=== PATIENT | male | born 1970 | race Two or more races ===

== ENCOUNTER 2022-09-01 02:34 | Emergency (ER) | payer MEDICAID ==
[~2022-09-01] VITALS: Ht 175.3 cm; Wt 105.0 kg
[2022-09-01 03:32] LABS: Albumin 3.8 g/dL (3.4-5.0); BUN/Creatinine Ratio 16.3; Calcium 9.4 mg/dL (8.5-10.1)
[2022-09-01 03:33] LABS: Basophils # (auto) 0 10 ^3/uL (0-0.2); Basophils % (auto) 0.6 % (0.0-2.0); Eosinophils # (auto) 0.3 10 ^3/uL (0-0.8); Eosinophils % (auto) 4.1 % (0.0-7.0); Hematocrit 41.4 % (41.0-53.0); Hemoglobin 14.4 g/dL (13.5-17.5); Lymphocytes # (auto) 2.3 10 ^3/uL (0.4-5.4); Mean Corpuscular Hemoglobin 29.4 pg (28.0-32.0); Mean Corpuscular Hgb Conc. 34.8 g/dL (32.0-36.0); Mean Corpuscular Volume 84.5 fL (80.0-100.0); Monocytes # (auto) 0.6 10 ^3/uL (0-1.3); Monocytes % (auto) 8.3 % (0.0-12.0); Nucleated Red Blood Cells % 0.3 %; Red Blood Cells 4.91 10^6/uL (4.5-5.90); Red Cell Distribution Width 14.8 % (11.8-14.3); White Blood Cell 7.3 10^3/uL (4.4-10.8)
[2022-09-01 03:35] LABS: Bilirubin, Total 0.3 mg/dL (0.2-1.0)
[2022-09-01] MEDS ORDERED: KETOROLAC TROMETH 60MG/2ML VIAL IM ONE (05:00)
[2022-09-01] MEDS ORDERED: METH500T22 PO (05:02)
[2022-09-01 05:29] VITALS: BP 139/88
== END 2022-09-01 05:47 | disposition home or self-care (01) ==
LOC: ER 02:34
DX: R10.11 Right upper quadrant pain (principal); R07.81 Pleurodynia; M79.18 Myalgia, other site; I10 Essential (primary) hypertension
CPT/HCPCS: 36415; 71045; 71250; 74176; 80053; 83690; 85025; 93005; 96372; 99285; J1885

== ENCOUNTER 2023-10-14 02:18 | Emergency (ER) | payer OTHER ==
[~2023-10-14] VITALS: Ht 175.3 cm; Wt 104.4 kg
[~2023-10-14 02:18] MED LIST: METH-1181 PO
[2023-10-14 02:30] VITALS: BP 132/80; PULSE 98; RESP 20; TEMP 98.2; O2SAT 99
[2023-10-14] MEDS: IBUPROFEN 800 MG TAB PO ONE (04:30)
[2023-10-14] MEDS ORDERED: CYCL-611 PO (04:37)
[2023-10-14] MEDS ORDERED: IBUP1TAB5 PO (04:37)
== END 2023-10-14 07:17 | disposition home or self-care (01) ==
LOC: ER 02:18
DX: S43.492A Other sprain of left shoulder joint, initial encounter (principal); S33.5XXA Sprain of ligaments of lumbar spine, initial encounter; S53.492A Other sprain of left elbow, initial encounter; I10 Essential (primary) hypertension; Z79.899 Other long term (current) drug therapy; V89.2XXA Person injured in unspecified motor-vehicle accident, traffic, initial encounter; Y93.I9 Activity, other involving external motion; Y92.89 Other specified places as the place of occurrence of the external cause; Y99.8 Other external cause status
CPT/HCPCS: 72100; 73030; 73080

== ENCOUNTER 2024-01-07 01:22 | Inpatient (IN) | payer OTHER ==
[~2024-01-07] VITALS: Ht 175.3 cm; Wt 103.7 kg
[~2024-01-07 01:22] MED LIST changes: +CYCL-611 PO; +IBUP1TAB5 PO
[2024-01-07 02:00] LABS: Basophils # (auto) 0.1 10 ^3/uL (0-0.2); Basophils % (auto) 0.4 % (0.0-2.0); Eosinophils # (auto) 0.1 10 ^3/uL (0-0.8); Eosinophils % (auto) 0.9 % (0.0-7.0); Hematocrit 40.8 % (41.0-53.0); Hemoglobin 14.2 g/dL (13.5-17.5); Lymphocytes # (auto) 1.3 10 ^3/uL (0.4-5.4); Lymphocytes % (auto) 10.6 % (10.0-50.0); Mean Corpuscular Hemoglobin 30.1 pg (28.0-32.0); Mean Corpuscular Hgb Conc. 34.9 g/dL (32.0-36.0); Mean Corpuscular Volume 86.4 fL (80.0-100.0); Monocytes # (auto) 0.8 10 ^3/uL (0-1.3); Monocytes % (auto) 6.6 % (0.0-12.0); Neutrophils # (auto) 10.1 10 ^3/uL (1.6-8.6); Neutrophils % (auto) 81.5 % (37.0-80.0); Red Blood Cells 4.73 10^6/uL (4.5-5.90); Red Cell Distribution Width 14.9 % (11.8-14.3); White Blood Cell 12.5 10^3/uL (4.4-10.8)
[2024-01-07 02:16] LABS: Alanine Aminotransferase 45 U/L (7-40); Albumin 4.5 g/dL (3.2-4.8); Alkaline Phosphatase 108 U/L (46-116); Anion Gap 9 (5-15); Aspartate Aminotransferase 23 U/L (13-40); BUN/Creatinine Ratio 9.5 (10.0-20.0); Bilirubin, Total 1.2 mg/dL (0.2-1.0); Blood Urea Nitrogen 8 mg/dL (9-23); Calcium 9.7 mg/dL (8.7-10.4); Carbon Dioxide 23 mmol/L (20-30); Chloride 102 mmol/L (98-107); Glucose 119 mg/dL (74-106); Potassium 4.1 mmol/L (3.5-5.1); Sodium 134 mmol/L (136-145); Total Protein 7.8 g/dL (5.7-8.2)
[2024-01-07 03:04] LABS: COVID19 ANTIGEN SOFIA FIA NEGATIVE (NEGATIVE); Rapid Influenza A Negative (Negative); Rapid Influenza B Negative (Negative)
[2024-01-07] MEDS ORDERED: ONDANSETRON HCL 4 MG/2 ML VIAL IV PRN (04:30)
[2024-01-07] MEDS ORDERED: DOCUSATE SOD 100 MG CAP PO PRN (04:30)
[2024-01-07] MEDS: dilTIAZem 25 MG/5 ML VIAL IV ONE (04:30)
[2024-01-07] MEDS ORDERED: MORPHINE SULFATE INJ 2 MG/ml SYRG IV PRN ×2 (04:30→06:30)
[2024-01-07] MEDS: SODIUM CHLORIDE 0.9% 1,000 ML IV SCH (05:12)
[2024-01-07] MEDS: cefTRIAXone 1GM/50ML D5W 50 ML IV ONE (05:12)
[2024-01-07 05:38] VITALS: PULSE 92; RESP 18; O2SAT 96
[2024-01-07 06:58] LABS: Urine Bacteria None Seen /hpf (None Seen)
[2024-01-07 07:04] LABS: Urine Blood 1+ /uL (Negative); Urine Clarity Clear (Clear); Urine Color Light-Yellow (Yellow); Urine Protein, UAD Negative (Negative); Urine Specific Gravity 1.007 (1.001-1.035); Urine Urobilinogen Normal (Negative); Urine WBC 2 /hpf (0 - 3)
[2024-01-07 07:30] VITALS: PULSE 91; RESP 12; O2SAT 96
[2024-01-07] MEDS: METOPROLOL TARTRATE 25 MG TAB PO SCH (10:00)
[2024-01-07] MEDS: AZITHROMYCIN 500MG/ 250ML 250 ML IV SCH (11:50)
[2024-01-07] MEDS: HYDROcodone-ACET 5/325MG TAB PO PRN (15:18)
[2024-01-07 18:29] VITALS: PULSE 82; RESP 16; O2SAT 96
[2024-01-07 18:35] VITALS: BP 121/64; PULSE 82; RESP 16; TEMP 98.2; O2SAT 98
[2024-01-07] MEDS ORDERED: LISI40TA16 PO (19:00)
[2024-01-07 20:00] VITALS: PULSE 84
[2024-01-07 21:00] VITALS: BP 112/62; PULSE 83; RESP 19; TEMP 98.3; O2SAT 97
[2024-01-08] VITALS (8 sets, daily range): BP systolic 107–149; BP diastolic 71–81; PULSE 71–96; RESP 14–18; TEMP 98.1–98.7; O2SAT 94–99
[2024-01-08] MEDS: IBUPROFEN 600 MG TAB PO PRN (03:54)
[2024-01-08] MEDS: NITROGLYCERIN 0.4 MG SL TAB SL PRN (04:24)
[2024-01-08] MEDS: cefTRIAXone 1GM/50ML D5W 50 ML IV SCH (05:23)
[2024-01-08 05:53] LABS: Basophils # (auto) 0 10 ^3/uL (0-0.2); Basophils % (auto) 0.3 % (0.0-2.0); Eosinophils # (auto) 0.2 10 ^3/uL (0-0.8); Eosinophils % (auto) 2.4 % (0.0-7.0); Hemoglobin 13.9 g/dL (13.5-17.5); Lymphocytes # (auto) 1.6 10 ^3/uL (0.4-5.4); Lymphocytes % (auto) 16.2 % (10.0-50.0); Mean Corpuscular Hemoglobin 30.1 pg (28.0-32.0); Mean Corpuscular Hgb Conc. 34.8 g/dL (32.0-36.0); Mean Corpuscular Volume 86.6 fL (80.0-100.0); Monocytes # (auto) 0.7 10 ^3/uL (0-1.3); Monocytes % (auto) 7.2 % (0.0-12.0); Neutrophils # (auto) 7.5 10 ^3/uL (1.6-8.6); Neutrophils % (auto) 73.9 % (37.0-80.0); Nucleated Red Blood Cells % 0.1 %; Red Blood Cells 4.62 10^6/uL (4.5-5.90); Red Cell Distribution Width 14.7 % (11.8-14.3); White Blood Cell 10.1 10^3/uL (4.4-10.8)
[2024-01-08 06:17] LABS: Alanine Aminotransferase 40 U/L (7-40); Alkaline Phosphatase 83 U/L (46-116); Anion Gap 7 (5-15); Aspartate Aminotransferase 22 U/L (13-40); BUN/Creatinine Ratio 11.8 (10.0-20.0); Blood Urea Nitrogen 9 mg/dL (9-23); Calcium 9.3 mg/dL (8.7-10.4); Carbon Dioxide 25 mmol/L (20-30); Chloride 104 mmol/L (98-107); Glucose 91 mg/dL (74-106); Potassium 4.1 mmol/L (3.5-5.1); Sodium 136 mmol/L (136-145); Total Protein 7.1 g/dL (5.7-8.2)
[2024-01-09 01:06] VITALS: BP 137/84; PULSE 79; RESP 18; TEMP 98.5; O2SAT 100
[2024-01-09 05:00] VITALS: BP 117/68; PULSE 89; RESP 18; TEMP 98.6; O2SAT 96
[2024-01-09 07:30] VITALS: PULSE 85; RESP 18
[2024-01-09 08:59] VITALS: BP 125/80; PULSE 92; RESP 18; TEMP 98.6; O2SAT 96
[2024-01-09 11:57] VITALS: BP 111/72; PULSE 81; RESP 18; TEMP 98.3; O2SAT 96
[2024-01-09] MEDS ORDERED: AZIT500T66 PO (12:29)
[2024-01-09 14:36] VITALS: BP 125/80; PULSE 92; RESP 18; TEMP 36.8; O2SAT 94
== END 2024-01-09 14:26 | disposition home or self-care (01) | DRG 137 ==
LOC: ER 01:22 → TELE 06:18 → TELE-WESTW 18:22
PROVIDERS: ADMIT Nurse Practitioner Family; ATTEND Family Medicine
DX: J15.69 Pneumonia due to other Gram-negative bacteria (principal); J90 Pleural effusion, not elsewhere classified; J15.9 Unspecified bacterial pneumonia; D72.829 Elevated white blood cell count, unspecified; Z20.822 Contact with and (suspected) exposure to COVID-19; I10 Essential (primary) hypertension; Z80.0 Family history of malignant neoplasm of digestive organs; Z82.49 Family history of ischemic heart disease and other diseases of the circulatory system; Z79.899 Other long term (current) drug therapy
CPT/HCPCS: 36415; 71045; 76604; 80053; 81001; 84484; 85025; 87426; 87804; 93005; G0378

== ENCOUNTER 2024-12-01 16:11 | Emergency (ER) | payer OTHER ==
[~2024-12-01] VITALS: Ht 175.3 cm; Wt 102.7 kg
[~2024-12-01 16:11] MED LIST changes: +AZIT500T66 PO; -IBUP1TAB5 PO; +LISI40TA16 PO; -METH-1181 PO
--- NOTE | 2024-12-01 16:20 | ED.PDOC ---
HPI Comments 54 year old male presents to the ED with a chief complaint of chest pain onset 2 weeks. Patient states he has been experiencing chest pain for the past 2 weeks, began experiencing shortness of breath today, noticed chest pain worsen. Patient has PMHx HTN, took BP medication this morning, states BP was not elevated. For the past few days he noticed BP was elevated. Denies nausea, vomiting, diarrhea, abdominal pain, dizziness, blurry vision, headache, fevers. No other symptoms or modifying factors present at this time. Chief Complaint: Chest Pain Time Seen by MD: 16:15 Primary Care Provider: JOSUE OCHOA Reviewed Notes: Medications, Allergies Allergies: Coded Allergies: NO KNOWN ALLERGIES (Unverified , 09/01/22) Home Meds Active Scripts Azithromycin (Azithromycin) 500 Mg Tab, 1 TAB PO DAILY, #10 TAB Prov:RENETTA KAPOOR MD 01/09/24 Cyclobenzaprine HCl (Cyclobenzaprine Hydrochlo) 10 Mg Tab, 1 TAB PO Q8HPRN PRN, #15 TAB As needed for muscle spasm Prov:DAMION DENNIS [employer] EVENTS FACILITIES RENTAL MANAGER 10/14/23 Reported Medications Lisinopril (Lisinopril) 40 Mg Tab, 40 MG PO DAILY for 30 Days, MG 01/07/24 Information Source: Patient Mode of Arrival: Ambulatory Severity: Moderate Timing: Weeks Duration: Since onset Prehospital treatment: None Location: Chest (L) Radiation: No Radiation Quality: Sharp Onset: At Rest Cardiac Risk Factors: HTN PE Risk Factors: None History of: None Modifying Factors: Nothing Associated Signs and Symptoms: SOB Past Medical History PAST MEDICAL HISTORY: HTN Surgical History: Denies all surgeries Family History Family History: Reviewed,noncontributory to illness Social History Smoker: Non-Smoker Alcohol: Denies ETOH Use Drugs: Denies Drug Use Lives In: Home Constitutional: denies: chills, diaphoresis, fatigue, fever, malaise, sweats, weakness, others EENTM: denies: blurred vision, double vision, ear bleeding, ear discharge, ear drainage, ear pain, ear ringing, eye pain, eye redness, hearing loss, mouth pain, mouth swelling, nasal discharge, nose bleeding, nose congestion, nose pain, photophobia, tearing, throat pain, throat swelling, voice changes, others Respiratory: reports: shortness of breath; denies: cough, hemoptysis, orthopnea, SOB at rest, SOB with excertion, stridor, wheezing, others Cardiovascular: reports: chest pain; denies: dizzy spells, diaphoresis, Dyspnea on exertion, edema, irregular heart beat, left arm pain, lightheadedness, palpitations, PND, syncope, others Gastrointestinal: denies: abdomen distended, abdominal pain, blood streaked bowels, constipated, diarrhea, dysphagia, difficulty swallowing, hematemesis, melena, nausea, poor appetite, poor fluid intake, rectal bleeding, rectal pain, vomiting, others Genitourinary: denies: burning, dysuria, flank pain, frequency, hematuria, incontinence, penile discharge, penile sore, pain, testicle pain, testicle swelling, urgency, others Neurological: denies: dizziness, fainting, headache, left sided numbness, left sided weakness, numbness, paresthesia, pre-existing deficit, right sided numbness, right sided weakness, seizure, speech problems, tingling, tremors, weakness, others Musculoskeletal: denies: back pain, gout, joint pain, joint swelling, muscle pain, muscle stiffness, neck pain, others Integumetry: denies: bruises, change in color, change in hair/nails, dryness, laceration, lesions, lumps, rash, wounds, others Allergic/Immunocompromised: denies: Difficulty Healing, Frequent Infections, Hives, Itching, others Hematologic/Lymphatic: denies: anemia, blood clots, easy bleeding, easy bruising, swollen glands, others Endocrine: denies: excessive hunger, excessive sweating, excessive thirst, excessive urination, flushing, intolerance to cold, intolerance to heat, unexplained weight gain, unexplained weight loss, others Psychiatric: denies: anxiety, bipolar disorder, depression, hopeless, panic d isorder, schizophrenia, sleepless, suicidal, others All Other Systems: Reviewed and Negative Physical Exam General Appearance: Normal HEENT: Normal ENT Inspection, Pharynx Normal, TMs Normal Neck: Full Range of Motion, Non-Tender, Normal, Normal Inspection Respiratory: Chest Non-Tender, Lungs Clear, No Accessory Muscle Use, No Respiratory Distress, Normal Breath Sounds Cardiovascular: No Edema, No JVD, No Murmur, No Gallop, Normal Peripheral Pulses, Regular Rate/Rhythm Breast Exam: Deferred Gastrointestinal: No Organomegaly, Non Tender, No Pulsatile Mass, Normal Bowel Sounds, Soft Genitalia: Deferred Pelvic: Deferred Rectal: Deferred Extremities: No calf tenderness, Normal capillary refill, Normal inspection, Normal range of motion, Non-tender, No pedal edema Musculoskeletal : Apperance: Normal Neurologic: Alert, hydrologist II-XII nml as Tested, No Motor Deficits, Normal Affect, Normal Mood, No Sensory Deficits Cerebellar Function: Normal Reflexes: Normal Skin: Dry, Normal Color, Warm Lymphatic: No Adenopathy Was a procedure done? Was a procedure done?: No X-Ray, Labs, Meds, VS Vital Signs Date Time Temp Pulse Resp B/P (MAP) Pulse Ox O2 Delivery O2 Flow Rate FiO2 12/01/24 17:08 98.4 99 17 129/73 (91) 97 98.4 12/01/24 16:50 98 19 95 Room Air* 0 21 12/01/24 16:32 18 96 Room Air* 0 21 12/01/24 16:23 98.6 101 20 135/69 (91) 96 98.6 12/01/24 16:16 101 Lab Test 12/01/24 16:20 Range/Units White Blood Count 11.2 H 4.4-10.8 10^3/uL Red Blood Count 5.21 4.5-5.90 10^6/uL Hemoglobin 14.9 13.5-17.5 g/dL Hematocrit 43.5 41.0-53.0 % Mean Corpuscular Volume 83.5 80.0-100.0 fL Mean Corpuscular Hemoglobin 28.6 28.0-32.0 pg Mean Corpuscular Hemoglobin Concent 34.2 32.0-36.0 g/dL Red Cell Distribution Width 14.8 H 11.8-14.3 % Platelet Count 320 140-450 10^3/uL Mean Platelet Volume 7.4 6.9-10.8 fL Neutrophils (%) (Auto) 68.2 37.0-80.0 % Lymphocytes (%) (Auto) 22.3 10.0-50.0 % Monocytes (%) (Auto) 5.7 0.0-12.0 % Eosinophils (%) (Auto) 3.3 0.0-7.0 % Basophils (%) (Auto) 0.5 0.0-2.0 % Neutrophils # (Auto) 7.7 1.6-8.6 10 ^3/uL Lymphocytes # (Auto) 2.5 0.4-5.4 10 ^3/uL Monocytes # (Auto) 0.6 0-1.3 10 ^3/uL Eosinophils # (Auto) 0.4 0-0.8 10 ^3/uL Basophils # (Auto) 0.1 0-0.2 10 ^3/uL Nucleated Red Blood Cells 0.1 % D-Dimer, Quantitative 2.64 H 0.0-0.49 mg/L FEU Sodium Level 140 136-145 mmol/L Potassium Level 4.6 3.5-5.1 mmol/L Chloride Level 106 98-107 mmol/L Carbon Dioxide Level 26 20-31 mmol/L Anion Gap 8 5-15 Blood Urea Nitrogen 12 9-23 mg/dL Creatinine 0.85 0.700-1.30 mg/dL Glomerular Filtration Rate Calc 103 >90 mL/min BUN/Creatinine Ratio 14.1 10.0-20.0 Serum Glucose 95 74-106 mg/dL Calcium Level 10.5 H 8.7-10.4 mg/dL Total Bilirubin 0.4 0.2-1.0 mg/dL Aspartate Amino Transferase (AST) 32 13-40 U/L Alanine Aminotransferase (ALT) 47 H 7-40 U/L Alkaline Phosphatase 109 46-116 U/L Troponin I High Sensitivity < 3 L </=54 ng/L Total Protein 8.4 H 5.7-8.2 g/dL Albumin 4.9 H 3.2-4.8 g/dL Current Medications Medications (Trade) Dose Ordered Sig/Luther Route Start Time Stop Time Status Last Admin Albuterol (Ventolin Medneb) 2.5 mg ONCE ONCE NEB 12/01/24 16:30 12/01/24 16:31 DC 12/01/24 16:31 Ipratropium Herman (Atrovent Medneb) 0.5 mg ONCE ONCE NEB 12/01/24 16:30 12/01/24 16:31 DC 12/01/24 16:31 Dexamethasone Sodium Phosphate (Decadron Injection) 10 mg ONCE ONCE IM 12/01/24 16:30 12/01/24 16:31 DC 12/01/24 16:27 Time of 1ST Reevaluation: 16:45 Reevaluation 1ST: Unchanged Patient Education/Counseling: Diagnosis, Treatment, Prognosis Family Education/Counseling: No Family Present Critical Care Note Critical Care Time?: No Stability Stability form required: No I personally scribed for CLIFF STREETER MD ([email or web address]) on 12/01/24 at 16:20. Elec tronically submitted by Jodie Lopez ([email or web address]). I personally scribed for CLIFF STREETER MD ([email or web address]) on 12/01/24 at 17:24. Electronically submitted by Jodie Lopez ([email or web address]). CLIFF STREETER MD Dec 01, 2024 16:20
[2024-12-01] MEDS: DexAMETHasone SOD PHOS 10MG/1ML VIAL INJ IM ONE (16:27)
[2024-12-01] MEDS: IPRATROPIUM BROM 0.5 MG/2.5ML INH SOL NEB ONE (16:31)
[2024-12-01] MEDS: ALBUTEROL SULF 2.5 MG/0.5ML(0.5%) NEB SOLN NEB ONE (16:31)
[2024-12-01 16:41] LABS: Basophils # (auto) 0.1 10 ^3/uL (0-0.2); Basophils % (auto) 0.5 % (0.0-2.0); Eosinophils # (auto) 0.4 10 ^3/uL (0-0.8); Eosinophils % (auto) 3.3 % (0.0-7.0); Hematocrit 43.5 % (41.0-53.0); Hemoglobin 14.9 g/dL (13.5-17.5); Lymphocytes # (auto) 2.5 10 ^3/uL (0.4-5.4); Lymphocytes % (auto) 22.3 % (10.0-50.0); Mean Corpuscular Hemoglobin 28.6 pg (28.0-32.0); Mean Corpuscular Hgb Conc. 34.2 g/dL (32.0-36.0); Mean Corpuscular Volume 83.5 fL (80.0-100.0); Monocytes # (auto) 0.6 10 ^3/uL (0-1.3); Monocytes % (auto) 5.7 % (0.0-12.0); Neutrophils # (auto) 7.7 10 ^3/uL (1.6-8.6); Neutrophils % (auto) 68.2 % (37.0-80.0); Nucleated Red Blood Cells % 0.1 %; Platelet Count (auto) 320 10^3/uL (140-450); Red Blood Cells 5.21 10^6/uL (4.5-5.90); Red Cell Distribution Width 14.8 % (11.8-14.3); White Blood Cell 11.2 10^3/uL (4.4-10.8)
[2024-12-01 16:50] VITALS: PULSE 98; RESP 19; O2SAT 95
[2024-12-01 16:57] LABS: Alkaline Phosphatase 109 U/L (46-116); Anion Gap 8 (5-15); Aspartate Aminotransferase 32 U/L (13-40); BUN/Creatinine Ratio 14.1 (10.0-20.0); Bilirubin, Total 0.4 mg/dL (0.2-1.0); Blood Urea Nitrogen 12 mg/dL (9-23); Carbon Dioxide 26 mmol/L (20-31); Chloride 106 mmol/L (98-107); Glucose 95 mg/dL (74-106); Potassium 4.6 mmol/L (3.5-5.1); Sodium 140 mmol/L (136-145)
[2024-12-01 16:58] LABS: Alanine Aminotransferase 47 U/L (7-40); Albumin 4.9 g/dL (3.2-4.8); Calcium 10.5 mg/dL (8.7-10.4); Total Protein 8.4 g/dL (5.7-8.2)
[2024-12-01] MEDS: IOHEXOL 350 MG/ML 100ML IJ ONE ×2 (17:22→18:12)
--- NOTE | 2024-12-01 17:26 | ED.PDOC ---
HPI Comments 54 year old male presents to the ED with a chief complaint of chest pain onset 2 weeks. Patient states he has been experiencing chest pain for the past 2 weeks, began experiencing shortness of breath today, noticed chest pain worsen. Patient has PMHx HTN, took BP medication this morning, states BP was not elevated. For the past few days he noticed BP was elevated. Denies nausea, vomiting, diarrhea, abdominal pain, dizziness, blurry vision, headache, fevers. No other symptoms or modifying factors present at this time. Vital signs were stable at arrival. Chief Complaint: Chest Pain Time Seen by MD: 16:20 Primary Care Provider: JOSUE OCHOA Reviewed Notes: Nurses Notes, Medications, Allergies Allergies: Coded Allergies: NO KNOWN ALLERGIES (Unverified , 09/01/22) Home Meds Active Scripts Azithromycin (Azithromycin) 500 Mg Tab, 1 TAB PO DAILY, #10 TAB Prov:RENETTA KAPOOR MD 01/09/24 Cyclobenzaprine HCl (Cyclobenzaprine Hydrochlo) 10 Mg Tab, 1 TAB PO Q8HPRN PRN, #15 TAB As needed for muscle spasm Prov:DAMION DENNIS RETAIL GREETING CARD MERCHANDISER 10/14/23 Reported Medications Lisinopril (Lisinopril) 40 Mg Tab, 40 MG PO DAILY for 30 Days, MG 01/07/24 Information Source: Patient Mode of Arrival: Ambulatory Severity: Moderate Timing: Weeks Duration: Since onset Prehospital treatment: None Location: Chest (L) Radiation: Abdomen Quality: Sharp Onset: At Rest Cardiac Risk Factors: HTN PE Risk Factors: None History of: None Modifying Factors: Nothing Associated Signs and Symptoms: SOB Past Medical History PAST MEDICAL HISTORY: HTN Surgical History: Denies all surgeries Family History Family History: Reviewed,noncontributory to illness Social History Smoker: Non-Smoker Alcohol: Denies ETOH Use Drugs: Denies Drug Use Lives In: Home Constitutional: denies: chills, diaphoresis, fatigue, fever, malaise, sweats, weakness, others EENTM: denies: blurred vision, double vision, ear bleeding, ear discharge, ear drainage, ear pain, ear ringing, eye pain, eye redness, hearing loss, mouth pain, mouth swelling, nasal discharge, nose bleeding, nose congestion, nose pain, photophobia, tearing, throat pain, throat swelling, voice changes, others Respiratory: reports: shortness of breath; denies: cough, hemoptysis, orthopnea, SOB at rest, SOB with excertion, stridor, wheezing, others Cardiovascular: reports: chest pain; denies: dizzy spells, diaphoresis, Dyspnea on exertion, edema, irregular heart beat, left arm pain, lightheadedness, palpitations, PND, syncope, others Gastrointestinal: denies: abdomen distended, abdominal pain, blood streaked bowels, constipated, diarrhea, dysphagia, difficulty swallowing, hematemesis, melena, nausea, poor appetite, poor fluid intake, rectal bleeding, rectal pain, vomiting, others Genitourinary: denies: burning, dysuria, flank pain, frequency, hematuria, incontinence, penile discharge, penile sore, pain, testicle pain, testicle swelling, urgency, others Neurological: denies: dizziness, fainting, headache, left sided numbness, left sided weakness, numbness, paresthesia, pre-existing deficit, right sided numbness, right sided weakness, seizure, speech problems, tingling, tremors, weakness, others Musculoskeletal: denies: back pain, gout, joint pain, joint swelling, muscle pain, muscle stiffness, neck pain, others Integumetry: denies: bruises, change in color, change in hair/nails, dryness, laceration, lesions, lumps, rash, wounds, others Allergic/Immunocompromised: denies: Difficulty Healing, Frequent Infections, Hives, Itching, others Hematologic/Lymphatic: denies: anemia, blood clots, easy bleeding, easy bruising, swollen glands, others Endocrine: denies: excessive hunger, excessive sweating, excessive thirst, excessive urination, flushing, intolerance to cold, intolerance to heat, unexplained weight gain, unexplained weight loss, others Psychiatric: denies: anxiety, bipolar disorder, depression, hopeless, panic disorder, schizophrenia, sleepless, suicidal, others All Other Systems: Reviewed and Negative Physical Exam General Appearance: Moderate Distress (Slow-il-llbdevxd distress due to chest pain concerns.), Normal HEENT: Normal ENT Inspection, Pharynx Normal, TMs Normal Neck: Full Range of Motion, Non-Tender, Normal, Normal Inspection Respiratory: Chest Non-Tender, Lungs Clear, No Accessory Muscle Use, No Respiratory Distress, Normal Breath Sounds, Other (Unremarkable auscultation bilateral lung ramirez.) Cardiovascular: No Edema, No JVD, No Murmur, No Gallop, Normal Peripheral Pulses, Tachycardia, Other (Unremarkable cardiac evaluation.) Breast Exam: Deferred Gastrointestinal: No Organomegaly, Non Tender, No Pulsatile Mass, Normal Bowel Sounds, Soft Genitalia: Deferred Pelvic: Deferred Rectal: Deferred Extremities: No calf tenderness, Normal capillary refill, Normal inspection, Normal range of motion, Non-tender, No pedal edema Musculoskeletal : Apperance: Normal Neurologic: Alert, No Motor Deficits, Normal Affect, Normal Mood, No Sensory Deficits Cerebellar Function: Normal Reflexes: Normal Skin: Dry, Normal Color, Warm Lymphatic: No Adenopathy Was a procedure done? Was a procedure done?: No CP Differential Dx Differential Diagnosis: A-fib, A-Flutter, Anxiety / Panic Attack, Atrial Dysrhythmia, AV Block 1st Degree, [place] Differential Diagnosis: CHF, HTN Essential Differential Diagnosis: Chest Wall Pain, Costochondritis, Pulmonary Embolus X-Ray, Labs, Meds, VS Vital Signs Date Time Temp Pulse Resp B/P (MAP) Pulse Ox O2 Delivery O2 Flow Rate FiO2 12/01/24 19:38 98.0 100 20 117/83 (94) 93 98.0 12/01/24 19:25 100 18 93 Room Air* 0 12/01/24 18:24 99 12/01/24 17:44 102 19 93 Room Air* 0 12/01/24 17:42 98.0 102 20 136/86 (103) 94 98.0 12/01/24 17:08 98.4 99 17 129/73 (91) 97 98.4 12/01/24 16:50 98 19 95 Room Air* 0 12/01/24 16:32 18 96 Room Air* 0 12/01/24 16:23 98.6 101 20 135/69 (91) 96 98.6 12/01/24 16:16 101 Lab Test 12/01/24 17:29 12/01/24 16:20 Range/Units Troponin I High Sensitivity < 3 L < 3 L </=54 ng/L White Blood Count 11.2 H 4.4-10.8 10^3/uL Red Blood Count 5.21 4.5-5.90 10^6/uL Hemoglobin 14.9 13.5-17.5 g/dL Hematocrit 43.5 41.0-53.0 % Mean Corpuscular Volume 83.5 80.0-100.0 fL Mean Corpuscular Hemoglobin 28.6 28.0-32.0 pg Mean Corpuscular Hemoglobin Concent 34.2 32.0-36.0 g/dL Red Cell Distribution Width 14.8 H 11.8-14.3 % Platelet Count 320 140-450 10^3/uL Mean Platelet Volume 7.4 6.9-10.8 fL Neutrophils (%) (Auto) 68.2 37.0-80.0 % Lymphocytes (%) (Auto) 22.3 10.0-50.0 % Monocytes (%) (Auto) 5.7 0.0-12.0 % Eosinophils (%) (Auto) 3.3 0.0-7.0 % Basophils (%) (Auto) 0.5 0.0-2.0 % Neutrophils # (Auto) 7.7 1.6-8.6 10 ^3/uL Lymphocytes # (Auto) 2.5 0.4-5.4 10 ^3/uL Monocytes # (Auto) 0.6 0-1.3 10 ^3/uL Eosinophils # (Auto) 0.4 0-0.8 10 ^3/uL Basophils # (Auto) 0.1 0-0.2 10 ^3/uL Nucleated Red Blood Cells 0.1 % D-Dimer, Quantitative 2.64 H 0.0-0.49 mg/L FEU Sodium Level 140 136-145 mmol/L Potassium Level 4.6 3.5-5.1 mmol/L Chloride Level 106 98-107 mmol/L Carbon Dioxide Level 26 20-31 mmol/L Anion Gap 8 5-15 Blood Urea Nitrogen 12 9-23 mg/dL Creatinine 0.85 0.700-1.30 mg/dL Glomerular Filtration Rate Calc 103 >90 mL/min BUN/Creatinine Ratio 14.1 10.0-20.0 Serum Glucose 95 74-106 mg/dL Calcium Level 10.5 H 8.7-10.4 mg/dL Total Bilirubin 0.4 0.2-1.0 mg/dL Aspartate Amino Transferase (AST) 32 13-40 U/L Alanine Aminotransferase (ALT) 47 H 7-40 U/L Alkaline Phosphatase 109 46-116 U/L B-Type Natriuretic Peptide 1.73 0-100 pg/mL Total Protein 8.4 H 5.7-8.2 g/dL Albumin 4.9 H 3.2-4.8 g/dL Current Medications Medications (Trade) Dose Ordered Sig/Luther Route Start Time Stop Time Status Last Admin Albuterol (Ventolin Medneb) 2.5 mg ONCE ONCE NEB 12/01/24 16:30 12/01/24 16:31 DC 12/01/24 16:31 Ipratropium [place] (Atrovent Medneb) 0.5 mg ONCE ONCE NEB 12/01/24 16:30 12/01/24 16:31 DC 12/01/24 16:31 Dexamethasone Sodium Phosphate (Decadron Injection) 10 mg ONCE ONCE IM 12/01/24 16:30 12/01/24 16:31 DC 12/01/24 16:27 X-Ray, Labs, Meds, VS Comment All studies performed the ED were evaluated by me personally. Serum studies today were unremarkable for most concerns. Patient did have an elevated D- dimer. CT angio of the chest was unremarkable for any acute concerns. Patient does have a 12-13 mm nodule in the right upper lung field which has not changed since previous CT on 09/01/2022. EKG revealed a mild sinus tachycardia with a rate of 101. MS interval 138 and QT interval of 323. Unremarkable EKG. Patient responded well to medication dispensed. Advised patient to follow up with his primary care provider for continued conversations including possible cardiac referral and consult. Time of 1ST Reevaluation: 19:44 Reevaluation 1ST: Improved Consultation: PCP, Cardiology Patient Education/Counseling: Diagnosis, Treatment, Prognosis Family Education/Counseling: Diagnosis, Treatment, No Family Present Departure 1 Departure Time of Disposition: 19:44 Impression: Primary Impression: Chest pain Disposition: HOME / SELF CARE / HOMELESS Condition: Stable Additional Instructions: Advised patient utilize Tylenol and or Motrin for chest pain concerns. Patient should follow up with the primary care provider for discussions related to his relatively current chest pain concerns. Discharged With: Self, Friend Critical Care Note Critical Care Time?: No Stability Stability form required: No Heart Score Heart Score: Heart Score Response (Comments) Value History Slightly Suspicious 0 EKG Normal 0 Age 45-64 1 Risk Factors 1 or 2 risk factors 1 Troponin Normal limit 0 Total 2 I personally scribed for COLLINS QUEVEDO PAC ([email or web address]) on 12/01/24 at 17:26. Electronically submitted by Jodie Lopez ([email or web address]). COLLINS QUEVEDO PAC Dec 01, 2024 17:26
--- NOTE | 2024-12-01 17:28 | DVH ---
EXAM: XY CHEST PORTABLE TECHNIQUE: Single frontal chest radiograph CLINICAL HISTORY: Chest pain COMPARISON: XY CHEST PORTABLE on DOS: 01/07/24, XY CHEST XRAY 1 VIEW on DOS: 09/01/22 Findings/Impression: Frontal chest radiograph demonstrates no acute osseous or superficial soft tissue abnormalities. The trachea is midline. The cardiac silhouette and mediastinum are within normal limits. No pneumothorax, pleural effusions, or consolidations.
[2024-12-01 17:44] VITALS: PULSE 102; RESP 19; O2SAT 93
--- NOTE | 2024-12-01 18:46 | DVH ---
Procedure: CT CT ANGIO CHEST CONTRAST Reason for study/Clinical History: Elevated D-dimer Comparison Study: None Exam Date: 12/01/2024 06:01 PM Radiation Dose Information: CT Dose: CTDI volume is 28.84 mGy. Dose-length product is 976.04 mGy*cm Contrast: Type of contrast: Omnipaque 350 Contrast inject: 60 mL Contrast wasted:0 TECHNIQUE: After the uneventful administration of intravenous contrast intravenously, CT imaging was performed through the chest. Coronal and sagittal reformations were performed by the technologist. FINDINGS: Lower Neck: Visualized portions of the thyroid gland are unremarkable. Aorta and Vasculature: Normal caliber of thoracic aorta. Suboptimal opacification of the pulmonary ar ro with tissue density 214 Hounsfield units. Minimal opacification required is 266 Hounsfield units . There are no saddle emboli or large filling defects in the right or left pulmonary arteries. Lymph Nodes: No enlarged intrathoracic lymph nodes. Mediastinum: Heart size is normal. There is no pericardial effusion. The esophagus is unremarkable. Lungs: Scarring noted in the right upper lung field unchanged from 09/21/2018. A nodule measuring 12 -13 mm with parenchymal stranding to the pleural surface emanating from this nidus. On prior study of 09/01/2022 this measured 14-15 mm. unchanged from prior CT. pleural effusion or significant pneumoth orax. No suspicious pulmonary nodule or mass. Musculoskeletal: No acute osseous abnormality. Upper abdomen: Limited portions of the upper abdomen are unremarkable. IMPRESSION: 1. Suboptimal opacification of the pulmonary artery. Please see above comments for explanation. There is no saddle embolus or large filling defects in the right or left pulmonary arteries. 2. 12-13 mm nodule right upper lung field with parenchymal stranding to the pleural surface. This was present on the previous CT of 09/01/2022. The central nodular nidus at that time measured 14-[address] scans at this medical facility are performed using dose modulation techniques as appropriate to a performed exam including the following: Automated exposure control was utilized; adjustment of t he MA and/or KV according to patient size; and use of iterative reconstruction technique. HS:Y
[2024-12-01 19:25] VITALS: PULSE 100; RESP 18; O2SAT 93
[2024-12-01 19:38] VITALS: BP 117/83; PULSE 100; RESP 20; TEMP 98; O2SAT 93
--- NOTE | 2024-12-02 04:58 | ECG ---
[facility] Test Date: 2024-12-01 Test Time: 16:16:57 Pat Name: EDITA HOWARD Department: ER Room: Gender: M Parts Identification Technician: : 1970 Requested By: COLLINS QUEVEDO Order Number: [id number] Reading MD: Moiz Grande Measurements Intervals [place] Rate: 101 P: 36 TN: 138 QRS: 58 QRSD: 88 T: 10 QT: 323 QTc: 419 Interpretive Statements Sinus tachycardia Electronically Signed On 12-04-2024 20:55:34 PDT by Moiz Grande Please click the below link to view image of tracing.
== END 2024-12-01 20:04 | disposition home or self-care (01) ==
LOC: ER 16:15
DX: R07.89 Other chest pain (principal); I10 Essential (primary) hypertension; Z79.899 Other long term (current) drug therapy
CPT/HCPCS: 36415; 71045; 71275; 80053; 83880; 84484; 85025; 85379; 93005; 94640; 96372; 99285; J1100; Q9967

== ENCOUNTER 2025-05-18 03:14 | Emergency (ER) | payer MEDICAID, OTHER ==
[~2025-05-18] VITALS: Ht 170.2 cm; Wt 105.5 kg
[2025-05-18 06:44] VITALS: BP 137/92; PULSE 102; RESP 17; TEMP 98.2; O2SAT 96
[2025-05-18] MEDS: KETOROLAC TROMETH 30 MG/ML 1ML VIAL IM ONE (07:23)
[2025-05-18] MEDS: methylPREDNISolone SOD SUCC 125 MG/2 ML VL IM ONE (07:23)
--- NOTE | 2025-05-18 07:25 | DVH ---
XY LUMBAR SPINE 3 VIEW, HISTORY: back pain COMPARISON: XY LUMBAR SPINE 3 VIEW on DOS: 10/14/23 TECHNICAL DATA: Frontal and lateral views were obtained of the lumbar spine. FINDINGS: There are 5 lumbar type vertebral bodies. Lumbar curvature is within normal limits. There is no spondylolisthesis. Vertebral body heights are maintained. Disk heights are narrow at L5-S1. The facet joints appear normal. The sacroiliac joints are symmetric. Paraspinal soft tissues are within normal limits. IMPRESSION: No acute fracture or dislocation of the lumbar spine.
--- NOTE | 2025-05-18 07:27 | DVH ---
XY SACRUM AND COCCYX HISTORY: back pain TECHNICAL DATA: Frontal, Cuevas and lateral views were obtained of the sacrum and coccyx. COMPARISON: None FINDINGS: No fracture or focal abnormality is demonstrated involving the sacrum. The sacral neural foramina appear symmetric. There is no distraction or displacement of the coccygeal segments. The sacroiliac joints appear normal. IMPRESSION: Unremarkable radiographs of the sacrum and coccyx.
[2025-05-18] MEDS ORDERED: CYCL-837 PO (07:38)
[2025-05-18] MEDS ORDERED: IBUP-1455 PO (07:38)
--- NOTE | 2025-05-18 07:39 | ED.PDOC ---
History of Present Illness HPI Comments Patient complaining of lower back pain that radiates into his buttock on bilateral sides x3 months. Patient denies any injury. States no heavy lifting. Says he is concerned because approximately 17 years ago and he had plastic surgery/gluteal implants. He was speaking to a friend and they advised him that it may be due to his surgery. Patient denies any fever or chills. Nothing makes it better, nothing makes it worse. Patient denies any bruising or swelling in the area. No loss of bladder or bowel control, no saddle paresthesia. Chief Complaint: Back Pain Time Seen by MD: 06:13 Primary Care Provider: JOSUE OCHOA Reviewed Notes: Nurses Notes Allergies: Coded Allergies: NO KNOWN ALLERGIES (Unverified , 09/01/22) Home Meds Active Scripts Azithromycin (Azithromycin) 500 Mg Tab, 1 TAB PO DAILY, #10 TAB Prov:RENETTA KAPOOR MD 01/09/24 Cyclobenzaprine HCl (Cyclobenzaprine Hydrochlo) 10 Mg Tab, 1 TAB PO Q8HPRN PRN, #15 TAB As needed for muscle spasm Prov:DAMION DENNIS WATCH AND CLOCK MAKER AND REPAIRER 10/14/23 Reported Medications Lisinopril (Lisinopril) 40 Mg Tab, 40 MG PO DAILY for 30 Days, MG 01/07/24 Information Source: Patient Mode of Arrival: Ambulatory Past Medical History PAST MEDICAL HISTORY: HTN Surgical History: Denies all surgeries Family History Family History: Reviewed,noncontributory to illness Social History Smoker: Non-Smoker Alcohol: Denies ETOH Use Drugs: Denies Drug Use Lives In: Home Constitutional: denies: chills, diaphoresis, fatigue, fever, malaise, sweats, weakness, others EENTM: denies: blurred vision, double vision, ear bleeding, ear discharge, ear drainage, ear pain, ear ringing, eye pain, eye redness, hearing loss, mouth pain, mouth swelling, nasal discharge, nose bleeding, nose congestion, nose pain, photophobia, tearing, throat pain, throat swelling, voice changes, others Respiratory: denies: cough, hemoptysis, orthopnea, SOB at rest, shortness of breath, SOB with excertion, stridor, wheezing, others Cardiovascular: denies: chest pain, dizzy spells, diaphoresis, Dyspnea on exertion, edema, irregular heart beat, left arm pain, lightheadedness, palpitations, PND, syncope, others Gastrointestinal: denies: abdomen distended, abdominal pain, blood streaked bowels, constipated, diarrhea, dysphagia, difficulty swallowing, hematemesis, melena, nausea, poor appetite, poor fluid intake, rectal bleeding, rectal pain, vomiting, others Genitourinary: denies: burning, dysuria, flank pain, frequency, hematuria, incontinence, penile discharge, penile sore, pain, testicle pain, testicle swelling, urgency, others Neurological: denies: dizziness, fainting, headache, left sided numbness, left sided weakness, numbness, paresthesia, pre-existing deficit, right sided numbness, right sided weakness, seizure, speech problems, tingling, tremors, weakness, others Musculoskeletal: reports: back pain; denies: gout, joint pain, joint swelling, muscle pain, muscle stiffness, neck pain, others Integumetry: denies: bruises, change in color, change in hair/nails, dryness, laceration, lesions, lumps, rash, wounds, others Allergic/Immunocompromised: denies: Difficulty Healing, Frequent Infections, Hives, Itching, others Hematologic/Lymphatic: denies: anemia, blood clots, easy bleeding, easy bruising, swollen glands, others Physical Exam General Appearance: No Apparent Distress, Normal HEENT: Normal ENT Inspection, Pharynx Normal, TMs Normal Neck: Full Range of Motion, Non-Tender, Normal, Normal Inspection Respiratory: Chest Non-Tender, Lungs Clear, No Accessory Muscle Use, No Respiratory Distress, Normal Breath Sounds Cardiovascular: No Edema, No JVD, No Murmur, No Gallop, Normal Peripheral Pulses, Regular Rate/Rhythm Breast Exam: Deferred Gastrointestinal: No Organomegaly, Non Tender, No Pulsatile Mass, Normal Bowel Sounds, Soft Genitalia: Deferred Pelvic: Deferred Rectal: Deferred Extremities: No calf tenderness, Normal capillary refill, Normal inspection, Normal range of motion, Non-tender, No pedal edema Musculoskeletal : Apperance: Normal Neurologic: Alert, operations plant attendant II-XII nml as Tested, No Motor Deficits, Normal Affect, Normal Mood, No Sensory Deficits Cerebellar Function: Normal Reflexes: Normal Skin: Dry, Normal Color, Warm Lymphatic: No Adenopathy Was a procedure done? Was a procedure done?: No Differential Dx Considerations may include: Postop complications, back pain, lumbar sprain, X-Ray, Labs, Meds, VS Vital Signs Date Time Temp Pulse Resp B/P (MAP) Pulse Ox O2 Delivery O2 Flow Rate FiO2 05/18/25 06:44 98.2 102 17 137/92 (107) 96 98.2 05/18/25 03:16 98.0 115 18 149/10 97 98.0 Current Medications Medications (Trade) Dose Ordered Sig/Luther Route Start Time Stop Time Status Last Admin Ketorolac Tromethamine (Toradol Injection) 30 mg ONCE ONCE IM 05/18/25 06:45 05/18/25 06:46 DC 05/18/25 07:23 Methylprednisolone Sodium Succinate (Solu Medrol) 125 mg ONCE ONCE IM 05/18/25 06:45 05/18/25 06:46 DC 05/18/25 07:23 X-Ray, Labs, Meds, VS Comment No obvious signs of infection Patient advised due to this being a chronic issue he will need follow up with PCP or trying get a hold of general surgeon who performed surgery If symptoms change or worsen patient advised to come back to the emergency department for further evaluation. Time of 1ST Reevaluation: 07:39 Reevaluation 1ST: Unchanged Patient Education/Counseling: Diagnosis, Treatment, Prognosis, Need For Follow Up (Follow up with PCP next available appointment.) Family Education/Counseling: Diagnosis, Treatment SEPSIS Sepsis Screen Date sepsis recognized/suspect: May 18, 2025 Time Sepsis recognized/suspect: 317 Recent Procedure: No On Antibiotic Therapy: No Respiratory Rate >20: No Heart Rate >90: Yes Temp<36 C (96.8 F) or >38.3 C: No SBP <90 or MAP <65 mmHG: No New Acute Mental Status Change: No Is the patient on CPAP, BIPAP,: No Physician Orders Lumbar Spine 3 View (05/18/25 06:42) Sacrum And Coccyx (05/18/25 06:42) Vital Signs Date Time Temp Pulse Resp B/P (MAP) Pulse Ox O2 Delivery O2 Flow Rate FiO2 05/18/25 06:44 98.2 102 17 137/92 (107) 96 98.2 05/18/25 03:16 98.0 115 18 149/10 97 98.0 Medications Medications Dose Ordered Sig/Luther Route Start Time Stop Time Status Last Admin Dose Admin Ketorolac Tromethamine 30 mg ONCE ONCE IM 05/18/25 06:45 05/18/25 06:46 DC 05/18/25 07:23 Methylprednisolone Sodium Succinate 125 mg ONCE ONCE IM 05/18/25 06:45 05/18/25 06:46 DC 05/18/25 07:23 Departure 1 Departure Time of Disposition: 07:37 Impression: Primary Impression: Lumbar radiculopathy Disposition: 01 HOME / SELF CARE / HOMELESS Condition: Stable e-Prescriptions Ibuprofen Micronized (Ibuprofen) 800 Mg Tab 800 MG PO TID PRN, #40 TAB Prov: JACKIE AN 05/18/25 Cyclobenzaprine Hcl (Cyclobenzaprine Hcl) 5 Mg Tab 1 TAB PO TID PRN, #30 TAB Prov: JACKIE AN 05/18/25 Discharged With: Self Critical Care Note Critical Care Time?: No Stability Stability form required: No Heart Score Heart Score: Heart Score Response (Comments) Value History N/A 0 EKG N/A 0 Age N/A 0 Risk Factors N/A 0 Troponin N/A 0 Total 0 JACKIE AN May 18, 2025 07:39
== END 2025-05-18 07:55 | disposition home or self-care (01) ==
LOC: ER 03:14
DX: M54.16 Radiculopathy, lumbar region (principal); I10 Essential (primary) hypertension; Z79.899 Other long term (current) drug therapy
CPT/HCPCS: 72100; 72220; 96372; 99284; J1885; J2919

== ENCOUNTER 2025-05-18 18:16 | Inpatient (IN) | payer MEDICAID ==
[~2025-05-18] VITALS: Ht 175.3 cm; Wt 103.7 kg
[~2025-05-18 18:16] MED LIST changes: +CYCL-837 PO; +IBUP-1455 PO
--- NOTE | 2025-05-18 18:31 | ECG ---
[facility] Test Date: 2025-05-18 Test Time: 18:20:06 Pat Name: EDITA HOWARD Department: ED Room: Gender: M Pig Handler: peterson : 1970 Requested By: YURI CARLSON Order Number: [id number] Reading MD: Moiz Grande Measurements Intervals [place] Rate: 123 P: 21 [place]: 153 QRS: 24 QRSD: 86 T: -20 QT: 322 QTc: 461 Interpretive Statements Sinus tachycardia Inferior infarct, age indeterminate Electronically Signed On 05-18-2025 18:32:47 PST by Moiz Grande Please click the below link to view image of tracing.
--- NOTE | 2025-05-18 19:27 | ED.PDOC ---
History of Present Illness HPI Comments 54 y/o obese M presents with c/c of palpitations x2 hours. Poor historian. Patient endorses on sudden and unprovoked onset of palpitations, this evening. He comments on having associated dizziness in addition to checking and noticing his blood pressure being elevated in the 170's systolic at home. He takes m etoprolol. Notable recent back surgery. Denies any chest pain, fever, chills, or further acute symptoms. Chief Complaint: Shortness of Breath Time Seen by MD: 19:10 Primary Care Provider: JOSUE OCHOA Reviewed Notes: Nurses Notes, Medications, Allergies Allergies: Coded Allergies: NO KNOWN ALLERGIES (Unverified , 09/01/22) Home Meds Active Scripts Ibuprofen Micronized (Ibuprofen) 800 Mg Tab, 800 MG PO TID PRN, #40 TAB Prov:JACKIE AN 05/18/25 Cyclobenzaprine Hcl (Cyclobenzaprine Hcl) 5 Mg Tab, 1 TAB PO TID PRN, #30 TAB Prov:JACKIE ANP 05/18/25 Azithromycin (Azithromycin) 500 Mg Tab, 1 TAB PO DAILY, #10 TAB Prov:RENETTA KAPOOR MD 01/09/24 Cyclobenzaprine HCl (Cyclobenzaprine Hydrochlo) 10 Mg Tab, 1 TAB PO Q8HPRN PRN, #15 TAB As needed for muscle spasm Prov:DAMION DENNIS FLOOR TECH 10/14/23 Reported Medications Lisinopril (Lisinopril) 40 Mg Tab, 40 MG PO DAILY for 30 Days, MG 01/07/24 Information Source: Patient Mode of Arrival: EMS Severity: Moderate Timing: Hours Duration: Since onset Prehospital treatment: None Past Medical History PAST MEDICAL HISTORY: HTN Surgical History (Other): back surgery inguinal hernia repair Family History Family History: Reviewed,noncontributory to illness, No family hx of Cancer, No family hx of DM, No family hx of Heart christos, No family hx ofKidney christos, No family hx of Liver christos, No family hx of Lung christos, No family hx of Stroke, Family hx of HTN Social History Smoker: Non-Smoker Alcohol: Denies ETOH Use Drugs: Denies Drug Use Lives In: Home Constitutional: denies: chills, diaphoresis, fatigue, fever, malaise, sweats, weakness, others EENTM: denies: blurred vision, double vision, ear bleeding, ear discharge, ear drainage, ear pain, ear ringing, eye pain, eye redness, hearing loss, mouth pain, mouth swelling, nasal discharge, nose bleeding, nose congestion, nose pain, photophobia, tearing, throat pain, throat swelling, voice changes, others Respiratory: denies: cough, hemoptysis, orthopnea, SOB at rest, shortness of breath, SOB with excertion, stridor, wheezing, others Cardiovascular: reports: palpitations; denies: chest pain, dizzy spells, diaphoresis, Dyspnea on exertion, edema, irregular heart beat, left arm pain, lightheadedness, PND, syncope, others Gastrointestinal: denies: abdomen distended, abdominal pain, blood streaked bowels, constipated, diarrhea, dysphagia, difficulty swallowing, hematemesis, melena, nausea, poor appetite, poor fluid intake, rectal bleeding, rectal pain, vomiting, others Genitourinary: denies: burning, dysuria, flank pain, frequency, hematuria, incontinence, penile discharge, penile sore, pain, testicle pain, testicle swelling, urgency, others Neurological: reports: dizziness; denies: fainting, headache, left sided numbness, left sided weakness, numbness, paresthesia, pre-existing deficit, right sided numbness, right sided weakness, seizure, speech problems, tingling, tremors, weakness, others Musculoskeletal: denies: back pain, gout, joint pain, joint swelling, muscle pain, muscle stiffness, neck pain, others Integumetry: denies: bruises, change in color, change in hair/nails, dryness, laceration, lesions, lumps, rash, wounds, others Allergic/Immunocompromised: denies: Difficulty Healing, Frequent Infections, Hives, Itching, others Hematologic/Lymphatic: reports: others (hypertension ); denies: anemia, blood clots, easy bleeding, easy bruising, swollen glands Endocrine: denies: excessive hunger, excessive sweating, excessive thirst, excessive urination, flushing, intolerance to cold, intolerance to heat, unexplained weight gain, unexplained weight loss, others Psychiatric: denies: anxiety, bipolar disorder, depression, hopeless, panic disorder, schizophrenia, sleepless, suicidal, others All Other Systems: Reviewed and Negative Physical Exam General Appearance: Moderate Distress HEENT: Normal ENT Inspection, Pharynx Normal, TMs Normal Neck: Full Range of Motion, Non-Tender, Normal, Normal Inspection Respiratory: Chest Non-Tender, Lungs Clear, No Accessory Muscle Use, No Respiratory Distress, Normal Breath Sounds Cardiovascular: No Edema, No JVD, No Murmur, No Gallop, Tachycardia Breast Exam: Deferred Gastrointestinal: No Organomegaly, Non Tender, No Pulsatile Mass, Normal Bowel Sounds, Soft Genitalia: Deferred Pelvic: Deferred Rectal: Deferred Extremities: No calf tenderness, Normal capillary refill, Normal inspection, Normal range of motion, Non-tender, No pedal edema Musculoskeletal : Apperance: Normal Neurologic: Alert, acquisitions librarian II-XII nml as Tested, No Motor Deficits, Normal Affect, Normal Mood, No Sensory Deficits Cerebellar Function: Normal Reflexes: Normal Skin: Dry, Normal Color, Warm Lymphatic: No Adenopathy Was a procedure done? Was a procedure done?: No EKG EKG #1: Pulse Rate (adult): 125 [place]: Normal Cardiac Rhythm: ST Block: None Hypertrophy: None ST: Normal EKG #2: Pulse Rate (adult): 122 [place]: Normal Cardiac Rhythm: ST Block: None Hypertrophy: None ST: Normal Differential Dx Considerations may include: arrhythmia, electrolyte imbalance, dehydration, hypertension - primary, hypertensive emergency, aneurysm, among others X-Ray, Labs, Meds, VS Vital Signs Date Time Temp Pulse Resp B/P (MAP) Pulse Ox O2 Delivery O2 Flow Rate FiO2 05/18/25 20:41 98.4 116 20 122/78 (93) 97 98.4 05/18/25 19:27 122 05/18/25 19:22 122 05/18/25 18:25 98.2 115 22 155/77 98 98.2 05/18/25 18:20 123 Lab Test 05/18/25 19:26 05/18/25 18:37 Range/Units Troponin I High Sensitivity < 3 L < 3 L </=54 ng/L White Blood Count 9.8 4.4-10.8 10^3/uL Red Blood Count 4.81 4.5-5.90 10^6/uL Hemoglobin 14.2 13.5-17.5 g/dL Hematocrit 41.2 41.0-53.0 % Mean Corpuscular Volume 85.6 80.0-100.0 fL Mean Corpuscular Hemoglobin 29.5 28.0-32.0 pg Mean Corpuscular Hemoglobin Concent 34.4 32.0-36.0 g/dL Red Cell Distribution Width 14.0 11.8-14.3 % Platelet Count 343 140-450 10^3/uL Mean Platelet Volume 7.2 6.9-10.8 fL Neutrophils (%) (Auto) 89.4 H 37.0-80.0 % Lymphocytes (%) (Auto) 9.4 L 10.0-50.0 % Monocytes (%) (Auto) 1.1 0.0-12.0 % Eosinophils (%) (Auto) 0.0 0.0-7.0 % Basophils (%) (Auto) 0.1 0.0-2.0 % Neutrophils # (Auto) 8.7 H 1.6-8.6 10 ^3/uL Lymphocytes # (Auto) 0.9 0.4-5.4 10 ^3/uL Monocytes # (Auto) 0.1 0-1.3 10 ^3/uL Eosinophils # (Auto) 0 0-0.8 10 ^3/uL Basophils # (Auto) 0 0-0.2 10 ^3/uL Nucleated Red Blood Cells 0.0 % Sodium Level 136 136-145 mmol/L Potassium Level 4.4 3.5-5.1 mmol/L Chloride Level 104 98-107 mmol/L Carbon Dioxide Level 21 20-31 mmol/L Anion Gap 11 5-15 Blood Urea Nitrogen 13 9-23 mg/dL Creatinine 0.89 0.700-1.30 mg/dL Glomerular Filtration Rate Calc 102 >90 mL/min BUN/Creatinine Ratio 14.6 10.0-20.0 Serum Glucose 143 H 74-106 mg/dL Calcium Level 9.9 8.7-10.4 mg/dL Magnesium Level 2.1 1.6-2.6 mg/dL Repeat EKG shows still sinus tachycardia The CBC and chemistry panel are within normal limits The patient's glucose is 143 The patient's troponin level x2 is negative The patient is still having persistent palpitations and we are going to admit the patient at this time The patient understands and agrees with the management. We will get a Cardiology consult. Time of 1ST Reevaluation: 19:40 Reevaluation 1ST: Unchanged Patient Education/Counseling: Diagnosis, Treatment, Prognosis Family Education/Counseling: No Family Present SEPSIS Sepsis Screen Date sepsis recognized/suspect: May 18, 2025 Time Sepsis recognized/suspect: 1827 Recent Procedure: No On Antibiotic Therapy: No Respiratory Rate >20: Yes Heart Rate >90: Yes Temp<36 C (96.8 F) or >38.3 C: No SBP <90 or MAP <65 mmHG: No New Acute Mental Status Change: No Is the patient on CPAP, BIPAP,: No Physician Orders Electrocardigram (05/18/25 18:30) Troponin-I Hs (05/18/25 21:30) Electrocardigram (05/18/25 19:30) Electrocardigram (05/18/25 21:30) Heplock Iv (05/18/25 ) Vital Signs Date Time Temp Pulse Resp B/P (MAP) Pulse Ox O2 Delivery O2 Flow Rate FiO2 05/18/25 20:41 98.4 116 20 122/78 (93) 97 98.4 05/18/25 19:27 122 05/18/25 19:22 122 05/18/25 18:25 98.2 115 22 155/77 98 98.2 05/18/25 18:20 123 Laboratory Tests Test 05/18/25 18:37 White Blood Count 9.8 10^3/uL (4.4-10.8) Departure 1 Departure Time of Disposition: 20:54 Impression: Primary Impression: Acute chest pain Additional Impression: Palpitations Disposition: 09 ADMITTED INPATIENT Admit to: Tele Condition: Fair Critical Care Note Critical Care Time?: No Stability Stability form required: Yes Unstable for transfer: ED Physician Assesment (Clinical assesment) Heart Score Heart Score: Heart Score Response (Comments) Value History Slightly Suspicious 0 EKG Normal 0 Age 45-64 1 Risk Factors 1 or 2 risk factors 1 Troponin Normal limit 0 Total 2 I personally scribed for YURI CARLSON MD ([email or web address]) on 05/18/25 at 19:27. Electronically submitted by Uday Garcia [email or web address]). YURI CARLSON MD May 18, 2025 19:27
[2025-05-18 19:47] LABS: Hematocrit 41.2 % (41.0-53.0); Hemoglobin 14.2 g/dL (13.5-17.5); Mean Corpuscular Hemoglobin 29.5 pg (28.0-32.0); Mean Corpuscular Volume 85.6 fL (80.0-100.0); Nucleated Red Blood Cells % 0.0 %
[2025-05-18 20:29] LABS: Chloride 104 mmol/L (98-107); Potassium 4.4 mmol/L (3.5-5.1); Sodium 136 mmol/L (136-145)
[2025-05-18 20:30] LABS: Anion Gap 11 (5-15); Calcium 9.9 mg/dL (8.7-10.4); Carbon Dioxide 21 mmol/L (20-31)
[2025-05-18 20:35] LABS: BUN/Creatinine Ratio 14.6 (10.0-20.0); Blood Urea Nitrogen 13 mg/dL (9-23)
[2025-05-18 20:36] LABS: Magnesium 2.1 mg/dL (1.6-2.6)
[2025-05-18 20:39] LABS: Glucose 143 mg/dL (74-106)
[2025-05-18] MEDS ORDERED: NITROGLYCERIN 0.4 MG SL TAB SL PRN (21:45)
--- NOTE | 2025-05-18 21:47 | DVHHPRES ---
History of Present Illness Resident Creating Document: HEMALATHA MEYER RESIDENT History of Present Illness This is a 54-year-old male with past medical history of HTN, chronic low back pain came to hospital with complaint of intractable low-back pain since last 3 months but worsened today and EMS brought to ER. The back pain was 10/10 intensity, localized, aggravated on pressure, no relieving factor, no radiation. Patient had history of cosmetic procedure to augment the buttock with implant placed under both gluteal area to improve contour and shape, 2007. Surgical site having pain, swelling but no discharge, redness or any active lesion noted. Patient also having chest pain which is intermittent , same duration,2- 5/10 intensity, localized behind the sternum no aggravating or relieving factor. Patient other symptoms including palpitation, sweating, exertional SOB, snoring and paroxysmal nocturnal dyspnea. Stress test done 6 years ago in [place] which came back negative. Patient currently denies any fever, headache, abdominal pain, dysuria, any focal weakness. Past medical history: As above Surgical history: As above Family history: Father-stomach cancer, mother-HTN, CAD. Personally history: Denies any EtOH, illicit drug use PCP: Nayely Hollingsworth ([phone]) Allergy: No known allergy Home medication: Lisinopril 40 mg Review of Systems Constitutional: Yes: Malaise; No: Fever, Chills, Sweats, Weakness, Other Eyes: No: Pain, Vision change, Conjunctivae inflammation, Eyelid inflammation, Other, Redness ENT: No: Ear pain, Ear discharge, Nose pain, Nose discharge, Nose congestion, Mouth pain, Mouth swelling, Throat pain, Throat swelling, Other Respiratory: No: Cough, Dry, Shortness of breath, SOB with excertion, Wheezing, Hemoptysis, Pleuritic Pain, Sputum, Wheezing, Other Cardiovascular: No: Chest Pain, Palpitations, Orthopnea, Paroxysmal Noc. Dyspnea, Edema, Lt Headedness, Other Gastrointestinal: No: Nausea, Vomiting, Abdominal Pain, Diarrhea, Constipation, Melena, Hematochezia, Other Genitourinary: No Dysuria, No Frequency, No Incontinence, No Hematuria, No Retention, No Other Musculoskeletal: No: other, neck pain, shoulder pain, arm pain, back pain, hand pain, leg pain, foot pain Skin: Other (Surgical scar radha gluteal cleft); No: Rash, Lesions, Jaundice, Bruising Neurological: No: Weakness, Numbness, Incoordination, Change in speech, Confusion, Seizures, Other Allergies: Coded Allergies: NO KNOWN ALLERGIES (Unverified , 09/01/22) Medications Current Medications Medications Dose Ordered Sig/Luther Route Start Time Stop Time Status Last Admin Dose Admin Acetaminophen/ Hydrocodone Bitart 1 tab Q4HP PRN PO 05/18/25 21:45 UNV Enoxaparin Sodium 40 mg DAILY SC 05/19/25 10:00 UNV Nitroglycerin 0.4 mg Q5MINP PRN SL 05/18/25 21:45 UNV Morphine Sulfate 2 mg Q30M PRN IV 05/18/25 21:45 UNV Pantoprazole Sodium 40 mg DAILY@0600 PO 05/19/25 06:00 UNV Lisinopril 40 mg DAILY PO 05/19/25 10:00 UNV Exam Vital Signs Vital Signs Date Time Temp Pulse Resp B/P (MAP) Pulse Ox O2 Delivery O2 Flow Rate FiO2 05/18/25 21:44 111 16 134/87 (103) 96 05/18/25 20:41 98.4 98.4 General Appearance: Alert, Oriented X3, Cooperative, mild distress, Other (Surgical scar radha gluteal cleft) HEENT: Atraumatic, PERRLA, EOMI Respiratory: Clear to auscultation, Normal air movement Cardiovascular: Regular rate, Normal S1, Normal S2 Abdominal: Normal bowel sounds, Soft, No tenderness Extremities: No clubbing, No cyanosis, No edema, Other (Bilateral gluteal area tender on deep palpation) Skin: No rashes Neuro: Normal gait, Normal speech, Strength at 5/5 X4 ext, Sensation intact Labs/Xrays Labs Test 05/18/25 19:26 05/18/25 18:37 Range/Units Troponin I High Sensitivity < 3 L </=54 ng/L White Blood Count 9.8 4.4-10.8 10^3/uL Red Blood Count 4.81 4.5-5.90 10^6/uL Hemoglobin 14.2 13.5-17.5 g/dL Hematocrit 41.2 41.0-53.0 % Mean Corpuscular Volume 85.6 80.0-100.0 fL Mean Corpuscular Hemoglobin 29.5 28.0-32.0 pg Mean Corpuscular Hemoglobin Concent 34.4 32.0-36.0 g/dL Red Cell Distribution Width 14.0 11.8-14.3 % Platelet Count 343 140-450 10^3/uL Mean Platelet Volume 7.2 6.9-10.8 fL Neutrophils (%) (Auto) 89.4 H 37.0-80.0 % Lymphocytes (%) (Auto) 9.4 L 10.0-50.0 % Monocytes (%) (Auto) 1.1 0.0-12.0 % Eosinophils (%) (Auto) 0.0 0.0-7.0 % Basophils (%) (Auto) 0.1 0.0-2.0 % Neutrophils # (Auto) 8.7 H 1.6-8.6 10 ^3/uL Lymphocytes # (Auto) 0.9 0.4-5.4 10 ^3/uL Monocytes # (Auto) 0.1 0-1.3 10 ^3/uL Eosinophils # (Auto) 0 0-0.8 10 ^3/uL Basophils # (Auto) 0 0-0.2 10 ^3/uL Nucleated Red Blood Cells 0.0 % Sodium Level 136 136-145 mmol/L Potassium Level 4.4 3.5-5.1 mmol/L Chloride Level 104 98-107 mmol/L Carbon Dioxide Level 21 20-31 mmol/L Anion Gap 11 5-15 Blood Urea Nitrogen 13 9-23 mg/dL Creatinine 0.89 0.700-1.30 mg/dL Glomerular Filtration Rate Calc 102 >90 mL/min BUN/Creatinine Ratio 14.6 10.0-20.0 Serum Glucose 143 H 74-106 mg/dL Calcium Level 9.9 8.7-10.4 mg/dL Magnesium Level 2.1 1.6-2.6 mg/dL SEPSIS Sepsis Screen Date sepsis recognized/suspect: May 18, 2025 Time Sepsis recognized/suspect: 1827 Recent Procedure: No On Antibiotic Therapy: No Respiratory Rate >20: Yes Heart Rate >90: Yes Temp<36 C (96.8 F) or >38.3 C: No SBP <90 or MAP <65 mmHG: No New Acute Mental Status Change: No Is the patient on CPAP, BIPAP,: No Physician Orders Electrocardigram (05/18/25 18:30) Electrocardigram (05/18/25 19:30) Electrocardigram (05/18/25 21:30) Heplock Iv (05/18/25 ) Admit (05/18/25 21:43) Code Status (05/18/25 21:43) Hydrocodone-Acet 5/325mg Tab ([place] 5/32 (05/18/25 21:45) Enoxaparin Sodium (Lovenox) (05/19/25 10:00) Cardiac Diet-2gna,Lofat,Lochol (05/19/25 Breakfast) Echo 2d Mode Cardiac Dop (05/18/25 21:43) Nitroglycerin Sublingual (Ntrostat Subli (05/18/25 21:45) Morphine Sulfate Injection (05/18/25 21:45) Notify Md Of Changes From Base (05/18/25 21:43) Pantoprazole Tablet (Protonix Tablet) (05/19/25 06:00) Lisinopril Tablet (Zestril Tablet) (05/19/25 10:00) Vital Signs Date Time Temp Pulse Resp B/P (MAP) Pulse Ox O2 Delivery O2 Flow Rate FiO2 05/18/25 21:44 111 16 134/87 (103) 96 05/18/25 20:41 98.4 116 20 122/78 (93) 97 98.4 05/18/25 19:27 122 05/18/25 19:22 122 05/18/25 18:25 98.2 115 22 155/77 98 98.2 05/18/25 18:20 123 Laboratory Tests Test 05/18/25 18:37 White Blood Count 9.8 10^3/uL (4.4-10.8) Assessment/Plan Assessment/Plan Intractable low-back pain due to radiculopathy Questionable bilateral gluteal implant inflammation Patient came with intractable lower back pain and gluteal pain No leukocytosis but left-shifted CT LUMBAR: No acute fracture or disease lumbar spine. x-ray sacrum and coccyx-No fracture or focal abnormality is demonstrated involving the sacrum. Disc heights are narrow at L5-S1. Pain management Cold compression Chest pain rule out ACS Chest pain likely costochondritis Vital HR 102 to 122, BP 137/92 , HR 22 and repeat BP 120 2 x 17 EKG: Sinus tachycardia heart rate 123, QTC 461 In ER patient received methylprednisolone, ketorolac Vital: No leukocytosis but left shift, Troponin< 3, < 3, < 3 BNP- 1.73 Pain management Essential hypertension BP 155/77, repeat BP 134/87 Home medication lisinopril 40 mg Monitor blood pressure History of bilateral gluteal implant surgery 2008 No focal weakness. Pain management Obesity, BMI 32.6 Lifestyle modification Diet: Cardiac GI prophylaxis: Pantoprazole DVT prophylax: Lovenox Goals of care discussions. More than 29 minute spent with patient. Full code status. Case discussed with Dr. Hudson Plan discussed with: Patient, Other (Nurse) My Orders Orders - HEMALATHA MEYER Procedure Category Date Status Time Admit ADMIT 05/18/25 Transmitted 21:43 Code Status CODE 05/18/25 Transmitted 21:43 Hydrocodone-Acet PHA 05/18/25 Logged 5/325mg Tab ([place] 21:45 Enoxaparin Sodium PHA 05/19/25 Logged (Lovenox) 10:00 Cardiac DIET 05/19/25 Transmitted Diet-2gna,Lofat,Lochol Breakfast Echo 2d Mode Cardiac US 05/18/25 Logged DOP 21:43 Nitroglycerin PHA 05/18/25 Logged Sublingual (Ntrostat 21:45 Morphine Sulfate PHA 05/18/25 Logged Injection 21:45 Notify Of Changes ARNAUD 05/18/25 In Process From Base 21:43 Pantoprazole Tablet PHA 05/19/25 Logged (Protonix Tablet) 06:00 Lisinopril Tablet PHA 05/19/25 Logged (Zestril Tablet) 10:00 Date of Service: May 18, 2025 Billing Provider: MELVIN HUDSON MD Common Visit Codes: [id number] INP/OBS CARE (HIGH) Secondary Visit Codes: [id number] CARE PLAN 30 MINUTES HEMALATHA MEYER May 18, 2025 21:47
[2025-05-18 23:10] LABS: INR 1.03 (0.9-1.15); Partial Thromboplastin Time 27.6 SEC (24.5-34.5); Prothrombin Time 10.9 sec (9.3-11.8)
[2025-05-19 05:20] LABS: Hematocrit 39.1 % (41.0-53.0); Hemoglobin 13.5 g/dL (13.5-17.5); Mean Corpuscular Hemoglobin 29.3 pg (28.0-32.0); Mean Corpuscular Volume 84.9 fL (80.0-100.0); Nucleated Red Blood Cells % 0.0 %
--- NOTE | 2025-05-19 05:31 | DVH ---
CHEST RADIOGRAPH Indication: chest pain Technique: Single frontal view of the chest was obtained COMPARISON: CT CT ANGIO CHEST CONTRAST on DOS: 12/01/24, XY CHEST PORTABLE on DOS: 12/01/24, US CHEST ULTRASOUND on DOS: 01/07/24, XY CHEST PORTABLE on DOS: 01/07/24, XY CHEST XRAY 1 VIEW on DOS: 09/01/22 FINDINGS: Lines and Tubes: None Lungs: Increased interstitial prominence. This may represent pulmonary vascular congestion and/or viral pneumonia. Pleura: No effusion.No pneumothorax. Cardiomediastinal contours: Cardiomegaly. Bones: Unremarkable IMPRESSION: Increased interstitial prominence. This may represent pulmonary vascular congestion and/or viral pneumonia.
[2025-05-19 05:36] LABS: Alanine Aminotransferase 31 U/L (7-40); Albumin 4.4 g/dL (3.2-4.8); Alkaline Phosphatase 107 U/L (46-116); Anion Gap 11 (5-15); BUN/Creatinine Ratio 15.2 (10.0-20.0); Blood Urea Nitrogen 12 mg/dL (9-23); Calcium 9.7 mg/dL (8.7-10.4); Carbon Dioxide 25 mmol/L (20-31); Chloride 103 mmol/L (98-107); Cholesterol 144 mg/dL (< 200); HDL Cholesterol 56 mg/dL (40-59); Potassium 4.4 mmol/L (3.5-5.1); Sodium 139 mmol/L (136-145); Triglycerides 54 mg/dL (< 150)
[2025-05-19 05:37] LABS: Bilirubin, Total 0.6 mg/dL (0.2-1.0)
[2025-05-19 05:42] LABS: Glucose 107 mg/dL (74-106); Total Protein 8.4 g/dL (5.7-8.2)
[2025-05-19] MEDS: PANTOPRAZOLE 40 MG TAB PO SCH (06:16)
[2025-05-19] MEDS: MORPHINE SULFATE INJ 2 MG/ml SYRG IV PRN (06:27)
[2025-05-19 07:30] VITALS: PULSE 75; RESP 13; O2SAT 95
[2025-05-19 10:25] VITALS: BP 120/77; PULSE 81; RESP 18; TEMP 97.7; O2SAT 98
[2025-05-19] MEDS: ENOXAPARIN SOD 40 MG/0.4 ML SYRINGE SC SCH (10:37)
[2025-05-19] MEDS: HYDROcodone-ACET 5/325MG TAB PO PRN (10:37)
[2025-05-19] MEDS: LISINOPRIL 20 MG TAB PO SCH (10:38)
[2025-05-19 10:51] VITALS: BP 120/77; PULSE 81; RESP 18; TEMP 97.7; O2SAT 98
--- NOTE | 2025-05-19 10:55 | ECG ---
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
[2025-05-19 11:06] LABS: Urine Protein, UAD Negative (Negative)
[2025-05-19 11:14] LABS: Opiate Scree,Urine Pos (NEGATIVE)
[2025-05-19 11:21] LABS: Amphetamine Screen, Urine Neg (NEGATIVE); Barbiturate Scree,Urine Neg (NEGATIVE); Benzodiazephine Screen, Urine Neg (NEGATIVE); Cannabinoid Screen, Urine Neg (NEGATIVE); Cocaine Screen, Urine Neg (NEGATIVE); Phencyclidine Screen, Urine Neg (NEGATIVE)
[2025-05-19 13:00] VITALS: BP 116/71; PULSE 83; RESP 18; TEMP 98.1; O2SAT 100
[2025-05-19] MEDS ORDERED: AMPICILLIN & SULBACTAM SODIUM 3 GM in SODIUM CHL 0.9% 100 ML IV SCH (15:15)
[2025-05-19] MEDS: IOHEXOL 300 MG/ML 100ML BOTTLE IJ ONE (15:36)
[2025-05-19] MEDS: SODIUM CHLORIDE 0.9% 1,000 ML IV SCH (16:09)
[2025-05-19] MEDS: ACETAMINOPHEN 325 MG TAB PO SCH (16:27)
[2025-05-19 16:31] VITALS: BP 123/76; PULSE 87; RESP 20; TEMP 98; O2SAT 96
--- NOTE | 2025-05-19 17:01 | DVHPNRES ---
Progress Note Date Seen: May 19, 2025 Resident Creating Document: WOODY PERDOMO RESIDENT Medical Necessity Reason Pt with a Central, PICC or Fol: No Subjective Review of Systems Dieter Alegre is a 54-year-old male with past medical history of hypertension who presented to the hospital with complains of pain in the gluteal region, chest pain and palpitations since 3 months. Patient says the pain has been chronic but has increased in intensity in the past 1 day Prompting the visit to the ED. Patient says that he came to the ED with the same complaints 1 day prior what was sent home. He has a history of gluteal augmentation surgeries done in 2007. The back pain was 10/10 intensity, localized, aggravated on pressure, no relieving factor, no radiation. Stress test done 6 years ago in [place] which came back negative. PMHx:hypertension PSHx: Gluteal augmentation surgery, inguinal hernia surgery Family history: nonrelevant Social history: lives in [place] with family. 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 Denies smoking, alcohol and drug use Home medication: lisinopril Allergic history: no known allergies General: patient denies fever, fatigue, weaknes, sweating, any recent changes in appetite and weight HEENT: No headaches, visiual changes, hearing loss, tinnitus, nasal congestion and discharge, and sore throat. Cardiovascular: Denies chest pain, palpitations, dyspnea on exertion, orthopnea, or claudication. Respiratory: No cough, and wheezing. Gastrointestinal: Denies nausea, vomiting, dysphagia, odynophagia, heartburn, abdominal pain, flatulence, bloating, diarrhea, constipation, change in stool, or blood in stool. Genitourinary: No dysuria, hematuria, discharge, frequency, urgency, nocturia, incontinence, and urinary retention. Endocrine: No heat or cold intolerance, polydipsia, polyuria, and polyphagia. Neurological: No dizziness, extremity weakness and numbness, tremors, gait disturbance, seizures, and memory impairment. Psychiatric: Denies depression, anxiety,or insomnia. Musculoskeletal: complains of pain in the bilateral buttocks Skin: No rashes, itching, skin lesion, changes in hair, nail, skin texture and breast. Hematologic/Lymphatic: Denies easy bruising, bleeding tendencies, or lymph node enlargement. Objective vital signs Vital Sign Date Time Temp Pulse Resp B/P (MAP) Pulse Ox O2 Delivery O2 Flow Rate FiO2 05/19/25 16:31 98.0 87 20 123/76 (92) 96 98.0 05/19/25 10:51 Room Air* 0 21 medications Current Medications Medications Dose Ordered Sig/Luther Route Start Time Stop Time Status Last Admin Dose Admin Acetaminophen/ Hydrocodone Bitart 1 tab Q4HP PRN PO 05/18/25 21:45 05/19/25 10:37 1 TAB Enoxaparin Sodium 40 mg DAILY SC 05/19/25 10:00 05/19/25 10:37 40 MG Nitroglycerin 0.4 mg Q5MINP PRN SL 05/18/25 21:45 Morphine Sulfate 2 mg Q30M PRN IV 05/18/25 21:45 05/19/25 06:27 2 MG Lisinopril 40 mg DAILY PO 05/19/25 10:00 05/19/25 10:38 40 MG Ampicillin Sodium/ Sulbactam Sodium 3 gm/Sodium Chloride 100 ml @ 100 mls/hr Q6H IV 05/19/25 15:15 Ibuprofen 600 mg BID PO 05/19/25 22:00 Acetaminophen 650 mg Q12HR PO 05/19/25 16:00 05/19/25 16:27 650 MG Pantoprazole Sodium 40 mg DAILY@0600 PO 05/20/25 06:00 Sodium Chloride 1,000 ml @ 100 mls/hr Q10H IV 05/19/25 15:15 05/19/25 16:09 100 MLS/HR Examination General Appearance: Alert, Oriented X3, Cooperative, No acute distress HEENT: Atraumatic, PERRLA, EOMI, Mucous membrane moist/pink Respiratory: Clear to auscultation, Normal air movement Cardiovascular: Regular rate, Normal S1, Normal S2, No murmurs, no chest wall tenderness Abdominal: Normal bowel sounds, Soft, No tenderness, No hepatospenomegaly, No masses Extremities: tenderness in the bilateral gluteal region. Skin: No rashes, No breakdown, No significant lesion Neuro: Normal gait, Normal speech, Strength at 5/5 X4 ext, Normal tone, Sensation intact, Cranial nerves 3-12 NL, Reflexes 2+ Psych/Mental Status: Mental status NL, Mood NL laboratory and microbiology Laboratory Tests 05/19/25 04:21 Test 05/19/25 04:21 Range/Units Serum Glucose 107 H 74-106 mg/dL Problem List/Assessment/Plan Problem List/Assessment/Plan Assessment and plan Sepsis due to below Intractable gluteal pain due to possible infection of gluteal implant leukocytosis left-shifted CT LUMBAR: No acute fracture or disease lumbar spine. x-ray sacrum and coccyx-No fracture or focal abnormality is demonstrated involving the sacrum. Disc heights are narrow at L5-S1. Pain management with scheduled ibuprofen and Tylenol Cold compression Follow lactic acid levels CT pelvis Ampicillin sulbactam Follow ESR, CRP Follow up blood cultures IV fluids Chest pain rule out ACS Chest pain likely costochondritis Vital HR 102 to 122, BP 137/92 , HR 22 and repeat BP 120 2 x 17 EKG: Sinus tachycardia heart rate 123, QTC 461 In ER patient received methylprednisolone, ketorolac Vital: No leukocytosis but left shift, Troponin< 3, < 3, < 3 BNP- 1.73 Pain management Essential hypertension BP 155/77, repeat BP 134/87 Home medication lisinopril 40 mg Monitor blood pressure History of bilateral gluteal implant surgery 2007 No focal weakness. Pain management Obesity, BMI 32.6 Lifestyle modification Diet: Cardiac GI prophylaxis: Pantoprazole DVT prophylax: Lovenox Goals of care. Full code status. Case discussed with Dr. Toure Plan discussed with: Patient My Orders My Orders Orders - WOODY PERDOMO RESIDENT Procedure Category Date Status Time Ct Ab Pel With Iv Con CT 05/19/25 Taken Only 15:11 Ampicillin & PHA 05/19/25 In Process Sulbactam Sodium 15:15 Ibuprofen Tablet PHA 05/19/25 In Process (Motrin Tablet) 22:00 Acetaminophen Tablet PHA 05/19/25 In Process (Tylenol Tablet) 16:00 Pantoprazole Tablet PHA 05/20/25 In Process (Protonix Tablet) 06:00 Lactic Acid W/ Reflex LAB 05/19/25 Logged Order 15:11 Sodium Chloride 0.9% PHA 05/19/25 In Process 15:15 Blood Culture SANDEEP 05/19/25 Logged 15:56 Complete Blood Count LAB 05/20/25 Verified 04:00 Comprehensive LAB 05/20/25 Verified Metabolic Panel 04:00 Date of Service: May 19, 2025 Billing Provider: AMAN ORANTES MD Common Visit Codes: [id number] INP/OBS CARE(HIGH) WOODY PERDOMO RESIDENT May 19, 2025 17:01
--- NOTE | 2025-05-19 17:57 | DVH ---
COMPUTERIZED TOMOGRAPHY ABDOMEN AND PELVIS WITH CONTRAST REASON FOR EXAM: gluteal implant (augmentation) COMPARISON: CT CT AB PEL WO CON-NO ORAL OR IV on DOS: 09/01/22 TECHNIQUE: The exam was performed on a Multidetector scanner. Spiral scans were acquired from the diaphragm to the symphysis pubis after administration of IV contrast. 2-D coronal and sagittal reformatted images were provided. Radiation optimization: All CT scans at this facility use at least one of these dose optimization techniques: Automated exposure control mA and/or kV adjustment per patient size (includes targeted exams where dose is matched to clinical indication) or iterative reconstruction. CONTRAST ADMINISTRATION: 100 mL omnipaque 300 intravenously RADIATION DOSE: CTDI: 17.96 mGy DLP: 999.13 mGy-cm FINDINGS: There is trace linear atelectasis versus scarring in the dependent right lower lobe. There is no pleural effusion. There is no pericardial effusion. The spleen is not enlarged. The liver is normal in size and contour. The portal vein is patent. No calcified gallstone is identified. The pancreas is within normal limits. The adrenal glands appear normal. The kidneys enhance symmetrically. No solid renal mass is identified. There is no hydronephrosis of either kidney. The urinary bladder is unremarkable. There is no abdominal aortic aneurysm. No pathologic lymphadenopathy is identified by size criteria. The prostate and seminal vesicles are within normal limits. The colonic stool burden is small. The appendix is normal. There is no Pathologic distention of the small bowel. There are few prominent subcentimeter lymph nodes in both groins. There are bilateral gluteal implants. There is a small amount of fluid surrounding the implants with a thick and partially calcified capsule. There is trace hyperdensity abutting the posterolateral aspect of the right implant that may represent leakage of silicone into the surrounding fluid. No acute osseous abnormality is identified. IMPRESSION: Small amount of fluid surrounding bilateral gluteal implants with a thick and partially calcified capsule. Seroma and abscess formation are considerations. Sampling of the fluid is recommended. Possible trace leakage from the right gluteal implant into the surrounding fluid.
[2025-05-19] MEDS: AMPICILLIN & SULBACTAM SODIUM 3 GM in SODIUM CHL 0.9% 100 ML IV SCH (18:30)
[2025-05-19 21:00] VITALS: BP_SYST 121; BP_SYST 160; BP_DIAS 72; BP_DIAS 96; PULSE 67; PULSE 80; RESP 17; RESP 18; TEMP 97.2; TEMP 97.3; O2SAT 96; O2SAT 97
[2025-05-19] MEDS: TEMAZEPAM 15 MG CAP PO ONE (21:20)
[2025-05-19] MEDS: IBUPROFEN 600 MG TAB PO SCH (21:21)
--- NOTE | 2025-05-19 23:48 | DVHSR ---
APPROVED REPORT EXAM: Two-dimensional and M-mode echocardiogram with Doppler and color Doppler. Blood Pressure: 123/64 mmHg INDICATION HISTORY OF HYPERTENSION RULE OUT CARDIAC RISK FACTORS Obesity: Height: 69, Weight: 220 DIMENSIONS LVDd 4.5 (3.8-5.7cm) LA (2D) 4.6 (1.9-4.0cm) Aortic Root 3.2 (2.0-3.7cm) LVDs 2.8 (2.5-4.0cm) LA (MM) (1.9-4.0cm) Aortic Cusp Exc 1.5 (1.5-2.0cm) EF (%) 55.0 (55-70%) Rt. Atrium 4.4 (1.9-4.0cm) Asc. Aorta 2.9 cm IVSd 1.0 (0.7-1.1cm) RV (D) 4.3 (1.8-2.4cm) PWd 0.9 (0.7-1.1cm) Mitral Valve Mitral Mitral Stenosis E wave 0.93m/s MV Mean GR. mmHg A wave 0.71m/s MV Peak GR. 49mmHg E/A ratio 1.3 2D MVA cm2 DECEL Time 132ms PRESS 1/2 Time ms Aortic Valve Aortic Valve Aortic Stenosis V1 0.87m/s AO Mean GR. 5mmHg V2 1.55m/s AO Peak GR. 10mmHg LVOT Diameter 2.0 (1.8-2.4cm) Doppler LIZZY 1.76cm2 Pulmonic Valve V2 1.13m/s Tricuspid Valve TR Velocity 2.41m/s RVSP 25mmHg Conclusion RV IS MODERATELY DILATED LV EF IS 65% NORMAL MV,TV AND PV AORTIC SCLEROSIS NO EFFUSION
[2025-05-20 05:00] VITALS: BP 133/90; PULSE 79; RESP 18; TEMP 97.9; O2SAT 96
[2025-05-20] MEDS: PANTOPRAZOLE 40 MG TAB PO SCH (05:35)
[2025-05-20 07:03] LABS: Hematocrit 39.0 % (41.0-53.0); Hemoglobin 13.6 g/dL (13.5-17.5); Mean Corpuscular Hemoglobin 29.6 pg (28.0-32.0); Mean Corpuscular Volume 84.7 fL (80.0-100.0); Nucleated Red Blood Cells % 0.1 %
[2025-05-20 07:19] LABS: Alanine Aminotransferase 36 U/L (7-40); Alkaline Phosphatase 96 U/L (46-116); Anion Gap 9 (5-15); BUN/Creatinine Ratio 16.1 (10.0-20.0); Blood Urea Nitrogen 14 mg/dL (9-23); Calcium 9.1 mg/dL (8.7-10.4); Carbon Dioxide 27 mmol/L (20-31); Chloride 105 mmol/L (98-107); Glucose 75 mg/dL (74-106); Potassium 4.1 mmol/L (3.5-5.1); Sodium 141 mmol/L (136-145); Total Protein 7.7 g/dL (5.7-8.2)
[2025-05-20 07:20] LABS: Albumin 4.0 g/dL (3.2-4.8)
[2025-05-20 07:21] LABS: Bilirubin, Total 0.6 mg/dL (0.2-1.0)
--- NOTE | 2025-05-20 07:43 | ECG ---
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
[2025-05-20 08:55] VITALS: BP 128/87; PULSE 80; RESP 16; TEMP 97.6; O2SAT 97
[2025-05-20 13:27] VITALS: BP 129/70; PULSE 82; RESP 17; TEMP 98.2; O2SAT 97
--- NOTE | 2025-05-20 15:37 | DVHINCON2 ---
Consultation - Surgical Date Seen: May 20, 2025 Referring Physician Reason for Consultation History of gluteal implants with drainage History of Present Illness History of Present Illness Mr. Alegre is a 54-year-old male who was consulted to me due to prior history of gluteal implants, has a for 17 years and for the last 3 months he has been leaking from the incision site for the implants. States that the leakage is clear colored. States that he has had associated fevers and chills at home. Denies ever having issues prior to this from the implants. Past Medical/Surgical History Past Medical/Surgical History Past medical history hypertension Past surgical history gluteal implants Family and Social History Family and Social History Family history noncontributory ETOH/T Ob/drugs denies Allergies and medications Allergies: Coded Allergies: NO KNOWN ALLERGIES (Unverified , 09/01/22) Home Meds Active Scripts Ibuprofen Micronized (Ibuprofen) 800 Mg Tab, 800 MG PO TID PRN, #40 TAB Prov:JACKIE ANP 05/18/25 Cyclobenzaprine Hcl (Cyclobenzaprine Hcl) 5 Mg Tab, 1 TAB PO TID PRN, #30 TAB Prov:JACKIE ANP 05/18/25 Azithromycin (Azithromycin) 500 Mg Tab, 1 TAB PO DAILY, #10 TAB Prov:RENETTA KAPOOR MD 01/09/24 Cyclobenzaprine HCl (Cyclobenzaprine Hydrochlo) 10 Mg Tab, 1 TAB PO Q8HPRN PRN, #15 TAB As needed for muscle spasm Prov:DAMION DENNIS [employer] 10/14/23 Reported Medications Lisinopril (Lisinopril) 40 Mg Tab, 40 MG PO DAILY for 30 Days, MG 01/07/24 Review of systems Review of Systems: Deferred Examination Vital signs Vital Signs Date Time Temp Pulse Resp B/P (MAP) Pulse Ox O2 Delivery O2 Flow Rate FiO2 05/20/25 13:27 98.2 82 17 129/70 (89) 97 98.2 05/20/25 08:00 Room Air* 0 21 Medications Current Medications Medications (Trade) Dose Ordered Sig/Luther Route PRN Reason Start Time Stop Time Status Last Admin Ibuprofen (Motrin Tablet) 600 mg BID PO 05/19/25 22:00 05/19/25 22:21 Acetaminophen (Tylenol Tablet) 650 mg Q12HR PO 05/19/25 16:00 05/20/25 10:01 Pantoprazole Sodium (Protonix Tablet) 40 mg DAILY@0600 PO 05/20/25 06:00 Ampicillin Sodium/ Sulbactam Sodium 3 gm/Sodium Chloride 100 ml @ 100 mls/hr Q6H IV 05/19/25 18:00 05/20/25 12:08 Laboratory Labs Test 05/20/25 06:16 05/19/25 17:04 05/19/25 10:12 05/19/25 04:21 Range/Units White Blood Count 8.0 # 4.4-10.8 10^3/uL Red Blood Count 4.60 4.5-5.90 10^6/uL Hemoglobin 13.6 13.5-17.5 g/dL Hematocrit 39.0 L 41.0-53.0 % Mean Corpuscular Volume 84.7 80.0-100.0 fL Mean Corpuscular Hemoglobin 29.6 28.0-32.0 pg Mean Corpuscular Hemoglobin Concent 35.0 32.0-36.0 g/dL Red Cell Distribution Width 14.0 11.8-14.3 % Platelet Count 294 140-450 10^3/uL Mean Platelet Volume 7.0 6.9-10.8 fL Neutrophils (%) (Auto) 60.5 37.0-80.0 % Lymphocytes (%) (Auto) 29.0 10.0-50.0 % Monocytes (%) (Auto) 8.2 0.0-12.0 % Eosinophils (%) (Auto) 1.6 0.0-7.0 % Basophils (%) (Auto) 0.7 0.0-2.0 % Neutrophils # (Auto) 4.8 1.6-8.6 10 ^3/uL Lymphocytes # (Auto) 2.3 0.4-5.4 10 ^3/uL Monocytes # (Auto) 0.7 0-1.3 10 ^3/uL Eosinophils # (Auto) 0.1 0-0.8 10 ^3/uL Basophils # (Auto) 0.1 0-0.2 10 ^3/uL Nucleated Red Blood Cells 0.1 % Sodium Level 141 136-145 mmol/L Potassium Level 4.1 3.5-5.1 mmol/L Chloride Level 105 98-107 mmol/L Carbon Dioxide Level 27 20-31 mmol/L Anion Gap 9 5-15 Blood Urea Nitrogen 14 9-23 mg/dL Creatinine 0.87 0.700-1.30 mg/dL Glomerular Filtration Rate Calc 103 >90 mL/min BUN/Creatinine Ratio 16.1 10.0-20.0 Serum Glucose 75 74-106 mg/dL Calcium Level 9.1 8.7-10.4 mg/dL Total Bilirubin 0.6 0.2-1.0 mg/dL Aspartate Amino Transferase (AST) 31 13-40 U/L Alanine Aminotransferase (ALT) 36 7-40 U/L Alkaline Phosphatase 96 46-116 U/L Total Protein 7.7 5.7-8.2 g/dL Albumin 4.0 3.2-4.8 g/dL Lactic Acid Level 1.4 0.4-2.0 mmol/L Urine Color Yellow Yellow Urine Clarity Clear Clear Urine pH 5.5 5.0-9.0 Urine Specific [place] 1.025 1.001-1.035 Urine Protein Negative Negative Urine Ketones Negative Negative Urine Blood Negative Negative /uL Urine Nitrite Negative Negative Urine Bilirubin Negative Negative Urine Urobilinogen Normal Negative mg/dL Urine Leukocyte Esterase Negative Negative /uL Urine RBC 8 0 - 3 /hpf Urine Microscopic WBC 2 0-3 /HPF Urine Squamous Epithelial Cells Few <5 /hpf Urine Bacteria None seen None Seen /hpf Urine Mucus Few None Seen Urine Glucose Normal Normal mg/dL Urine Opiates Screen Pos NEGATIVE Urine Fentanyl Screen Neg NEGATIVE Urine Barbiturates Screen Neg NEGATIVE Urine Phencyclidine Screen Neg NEGATIVE Urine Amphetamines Screen Neg NEGATIVE Urine Benzodiazepines Screen Neg NEGATIVE Urine Cocaine Screen Neg NEGATIVE Urine Cannabinoids Screen Neg NEGATIVE Erythrocyte Sedimentation Rate 30 H 0-20 mm/hr C-Reactive Protein High Sensitivity 2.38 H <1.0 mg/dL Triglycerides Level 54 < 150 mg/dL Cholesterol Level 144 < 200 mg/dL LDL Cholesterol 79 < 100 mg/dL HDL Cholesterol 56 40-59 mg/dL Vitamin B12 Level 552 211-911 pg/mL Vitamin D 25-Hydroxy 32.6 30.0-100 ng/mL Test 05/18/25 19:26 05/18/25 18:37 Range/Units Troponin I High Sensitivity < 3 L </=54 ng/L Prothrombin Time 10.9 9.3-11.8 sec Prothrombin Time INR 1.03 0.9-1.15 Activated Partial Thromboplast Time 27.6 24.5-34.5 SEC Hemoglobin A1c 5.9 H <5.7 % A1C Magnesium Level 2.1 1.6-2.6 mg/dL Thyroid Stimulating Hormone (TSH) 0.35 L 0.55-4.78 uIU/mL Examination: GENERAL:Normal (AAO x3), LUNGS:Normal (Nonlabored breathing with symmetric expansion), Any Other System: (Buttock area with the implants in place, no erythema, no edema, no pus, no drainage. Intergluteal cleft incision with pinpoint opening and drainage of serous fluid no surrounding erythema or edema or crepitus or pus.) Problem List/Assessment/Plan Problems: (1) Seroma Assessment and Plan Mr. Alegre is a 54-year-old male who presents with drainage coming from prior gluteal implant surgical scar. Drainage is clear colored. I reviewed the CT and shows fluid collection with thick capsule surrounding the bilateral gluteal implants. I did not see any gas bubbles within the fluid collection, but that does not mean that it could not be infected fluid collection. Patient needs to be referred to a plastic surgeon for possible implant excision. 1. Continue antibiotics 2. Consult Plastic surgery for possible hospital to hospital transfer versus outpatient follow up 3. I will sign off, please call for any questions or concerns. Plan discussed with Plan discussed with: Patient Visit Coding Surgery Date of Service if different f: May 20, 2025 Billing Provider: TAWANNA THAKKAR MD Surgery Visit Codes: [id number] - INP CONSULT <110 MIN TAWANNA THAKKAR MD May 20, 2025 15:37
--- NOTE | 2025-05-20 16:35 | DVHPNRES ---
Progress Note Date Seen: May 20, 2025 Resident Creating Document: WOODY PERDOMO Medical Necessity Reason Pt with a Central, PICC or Fol: No Subjective Review of Systems Patient seen at bedside. Says that the pain has come down. CT shows possible abscess and fluid extravasation from the implant. Surgery consulted. Dieetr Alegre is a 54-year-old male with past medical history of hypertension who presented to the hospital with complains of pain in the gluteal region, chest pain and palpitations since 3 months. Patient says the pain has been chronic but has increased in intensity in the past 1 day Prompting the visit to the ED. Patient says that he came to the ED with the same complaints 1 day prior what was sent home. He has a history of gluteal augmentation surgeries done in 2007. The back pain was 10/10 intensity, localized, aggravated on pressure, no relieving factor, no radiation. Stress test done 6 years ago in [place] which came back negative. PMHx:hypertension PSHx: Gluteal augmentation surgery, inguinal hernia surgery Family history: nonrelevant Social history: lives in [place] with family. 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 Denies smoking, alcohol and drug use Home medication: lisinopril Allergic history: no known allergies General: patient denies fever, fatigue, weaknes, sweating, any recent changes in appetite and weight HEENT: No headaches, visiual changes, hearing loss, tinnitus, nasal congestion and discharge, and sore throat. Cardiovascular: Denies chest pain, palpitations, dyspnea on exertion, orthopnea, or claudication. Respiratory: No cough, and wheezing. Gastrointestinal: Denies nausea, vomiting, dysphagia, odynophagia, heartburn, abdominal pain, flatulence, bloating, diarrhea, constipation, change in stool, or blood in stool. Genitourinary: No dysuria, hematuria, discharge, frequency, urgency, nocturia, incontinence, and urinary retention. Endocrine: No heat or cold intolerance, polydipsia, polyuria, and polyphagia. Neurological: No dizziness, extremity weakness and numbness, tremors, gait disturbance, seizures, and memory impairment. Psychiatric: Denies depression, anxiety,or insomnia. Musculoskeletal: complains of pain in the bilateral buttocks Skin: No rashes, itching, skin lesion, changes in hair, nail, skin texture and breast. Hematologic/Lymphatic: Denies easy bruising, bleeding tendencies, or lymph node enlargement. Objective vital signs Vital Sign Date Time Temp Pulse Resp B/P (MAP) Pulse Ox O2 Delivery O2 Flow Rate FiO2 05/20/25 13:27 98.2 82 17 129/70 (89) 97 98.2 05/20/25 08:00 Room Air* 0 21 Total Intake and Output 05/19/25 05/19/25 05/20/25 15:00 23:00 07:00 Intake Total 1220 ml 220 ml Output Total 800 ml Balance 1220 ml -580 ml medications Current Medications Medications Dose Ordered Sig/Luther Route Start Time Stop Time Status Last Admin Dose Admin Acetaminophen/ Hydrocodone Bitart 1 tab Q4HP PRN PO 05/18/25 21:45 05/19/25 10:37 1 TAB Enoxaparin Sodium 40 mg DAILY SC 05/19/25 10:00 05/20/25 10:01 40 MG Nitroglycerin 0.4 mg Q5MINP PRN SL 05/18/25 21:45 Morphine Sulfate 2 mg Q30M PRN IV 05/18/25 21:45 05/19/25 06:27 2 MG Lisinopril 40 mg DAILY PO 05/19/25 10:00 05/20/25 09:59 40 MG Ibuprofen 600 mg BID PO 05/19/25 22:00 05/19/25 22:21 600 MG Acetaminophen 650 mg Q12HR PO 05/19/25 16:00 05/20/25 10:01 650 MG Pantoprazole Sodium 40 mg DAILY@0600 PO 05/20/25 06:00 Sodium Chloride 1,000 ml @ 100 mls/hr Q10H IV 05/19/25 15:15 05/19/25 16:09 100 MLS/HR Ampicillin Sodium/ Sulbactam Sodium 3 gm/Sodium Chloride 100 ml @ 100 mls/hr Q6H IV 05/19/25 18:00 05/20/25 12:08 100 MLS/HR Examination General Appearance: Alert, Oriented X3, Cooperative, No acute distress HEENT: Atraumatic, PERRLA, EOMI, Mucous membrane moist/pink Respiratory: Clear to auscultation, Normal air movement Cardiovascular: Regular rate, Normal S1, Normal S2, No murmurs, no chest wall tenderness Abdominal: Normal bowel sounds, Soft, No tenderness, No hepatospenomegaly, No masses Extremities: tenderness in the bilateral gluteal region. Skin: No rashes, No breakdown, No significant lesion Neuro: Normal gait, Normal speech, Strength at 5/5 X4 ext, Normal tone, Sensation intact, Cranial nerves 3-12 NL, Reflexes 2+ Psych/Mental Status: Mental status NL, Mood NL laboratory and microbiology Laboratory Tests 05/20/25 06:16 Test 05/20/25 06:16 Range/Units Serum Glucose 75 74-106 mg/dL Problem List/Assessment/Plan Problem List/Assessment/Plan Assessment and plan Sepsis due to below Intractable gluteal pain due to possible infection of gluteal implant leukocytosis left-shifted CT LUMBAR: No acute fracture or disease lumbar spine. x-ray sacrum and coccyx-No fracture or focal abnormality is demonstrated involving the sacrum. Disc heights are narrow at L5-S1. Pain management with scheduled ibuprofen and Tylenol Cold compression Follow lactic acid levels CT pelvis Ampicillin sulbactam Follow ESR, CRP Follow up blood cultures IV fluids CT pelvis with contrast shows signs of abscess and leakage from the implant. Unasyn Chest pain rule out ACS Chest pain likely costochondritis Vital HR 102 to 122, BP 137/92 , HR 22 and repeat BP 120 2 x 17 EKG: Sinus tachycardia heart rate 123, QTC 461 In ER patient received methylprednisolone, ketorolac Vital: No leukocytosis but left shift, Troponin< 3, < 3, < 3 BNP- 1.73 Pain management Essential hypertension BP 155/77, repeat BP 134/87 Home medication lisinopril 40 mg Monitor blood pressure History of bilateral gluteal implant surgery 2007 No focal weakness. Pain management Obesity, BMI 32.6 Lifestyle modification Diet: Cardiac GI prophylaxis: Pantoprazole DVT prophylax: Lovenox Goals of care. Full code status. Case discussed with Dr. Toure Plan discussed with: Patient My Orders My Orders Orders - WOODY PERDOMO Procedure Category Date Status Time Ampicillin & PHA 05/19/25 In Process Sulbactam Sodium 18:00 Complete Blood Count LAB 05/21/25 Verified 04:00 Basic Metabolic Panel LAB 05/21/25 Verified 04:00 Date of Service: May 20, 2025 Billing Provider: AMAN ORANTES MD Common Visit Codes: [id number] INP/OBS CARE(HIGH) WOODY PERDOMO RESIDENT May 20, 2025 16:35
[2025-05-20 17:08] VITALS: BP 130/79; PULSE 89; RESP 17; TEMP 97.8; O2SAT 96
[2025-05-20 21:00] VITALS: BP 118/75; PULSE 92; RESP 18; TEMP 97.7; O2SAT 95
[2025-05-21 01:00] VITALS: BP_SYST 125; BP_SYST 156; BP_DIAS 80; BP_DIAS 84; PULSE 71; PULSE 87; RESP 18; TEMP 97.8; TEMP 98.1; O2SAT 94; O2SAT 97
[2025-05-21 05:00] VITALS: BP 106/59; PULSE 94; RESP 18; TEMP 97.9; O2SAT 95
[2025-05-21 06:41] LABS: Hematocrit 39.1 % (41.0-53.0); Hemoglobin 13.6 g/dL (13.5-17.5); Mean Corpuscular Hemoglobin 29.3 pg (28.0-32.0); Mean Corpuscular Volume 84.4 fL (80.0-100.0); Nucleated Red Blood Cells % 0.1 %
[2025-05-21 06:49] LABS: Chloride 103 mmol/L (98-107); Potassium 4.0 mmol/L (3.5-5.1); Sodium 140 mmol/L (136-145)
[2025-05-21 06:50] LABS: Anion Gap 10 (5-15); Carbon Dioxide 27 mmol/L (20-31)
[2025-05-21 06:51] LABS: Calcium 9.1 mg/dL (8.7-10.4)
[2025-05-21 06:56] LABS: BUN/Creatinine Ratio 17.8 (10.0-20.0); Blood Urea Nitrogen 13 mg/dL (9-23); Glucose 74 mg/dL (74-106)
[2025-05-21 09:00] VITALS: BP 112/75; PULSE 83; RESP 18; TEMP 97.9; O2SAT 96
[2025-05-21 12:59] VITALS: BP 102/67; PULSE 75; RESP 18; TEMP 98; O2SAT 97
[2025-05-21 17:00] VITALS: BP 114/73; PULSE 75; RESP 18; TEMP 97.7; O2SAT 97
--- NOTE | 2025-05-21 17:01 | DVHDSRES ---
Discharge Summary Date of Admission Resident Creating Document: WOODY PERDOMO RESIDENT May 18, 2025 at 21:43 Date of Discharge: May 21, 2025 Labs/Diagnostic Data: Laboratory Results Test 05/21/25 04:47 05/20/25 06:16 05/19/25 17:04 05/19/25 10:12 White Blood Count 6.7 10^3/uL (4.4-10.8) Red Blood Count 4.63 10^6/uL (4.5-5.90) Hemoglobin 13.6 g/dL (13.5-17.5) Hematocrit 39.1 % (41.0-53.0) Mean Corpuscular Volume 84.4 fL (80.0-100.0) Mean Corpuscular Hemoglobin 29.3 pg (28.0-32.0) Mean Corpuscular Hemoglobin Concent 34.7 g/dL (32.0-36.0) Red Cell Distribution Width 13.4 % (11.8-14.3) Platelet Count 293 10^3/uL (140-450) Mean Platelet Volume 7.1 fL (6.9-10.8) Neutrophils (%) (Auto) 60.6 % (37.0-80.0) Lymphocytes (%) (Auto) 29.2 % (10.0-50.0) Monocytes (%) (Auto) 7.3 % (0.0-12.0) Eosinophils (%) (Auto) 2.5 % (0.0-7.0) Basophils (%) (Auto) 0.4 % (0.0-2.0) Neutrophils # (Auto) 4.1 10 ^3/uL (1.6-8.6) Lymphocytes # (Auto) 2.0 10 ^3/uL (0.4-5.4) Monocytes # (Auto) 0.5 10 ^3/uL (0-1.3) Eosinophils # (Auto) 0.2 10 ^3/uL (0-0.8) Basophils # (Auto) 0 10 ^3/uL (0-0.2) Nucleated Red Blood Cells 0.1 % Sodium Level 140 mmol/L (136-145) Potassium Level 4.0 mmol/L (3.5-5.1) Chloride Level 103 mmol/L (98-107) Carbon Dioxide Level 27 mmol/L (20-31) Anion Gap 10 (5-15) Blood Urea Nitrogen 13 mg/dL (9-23) Creatinine 0.73 mg/dL (0.700-1.30) Glomerular Filtration Rate Calc 107 mL/min (>90) BUN/Creatinine Ratio 17.8 (10.0-20.0) Serum Glucose 74 mg/dL (74-106) Calcium Level 9.1 mg/dL (8.7-10.4) Total Bilirubin 0.6 mg/dL (0.2-1.0) Aspartate Amino Transferase (AST) 31 U/L (13-40) Alanine Aminotransferase (ALT) 36 U/L (7-40) Alkaline Phosphatase 96 U/L (46-116) Total Protein 7.7 g/dL (5.7-8.2) Albumin 4.0 g/dL (3.2-4.8) Lactic Acid Level 1.4 mmol/L (0.4-2.0) Urine Color Yellow (Yellow) Urine Clarity Clear (Clear) Urine pH 5.5 (5.0-9.0) Urine Specific [place] 1.025 (1.001-1.035) Urine Protein Negative (Negative) Urine Ketones Negative (Negative) Urine Blood Negative /uL (Negative) Urine Nitrite Negative (Negative) Urine Bilirubin Negative (Negative) Urine Urobilinogen Normal mg/dL (Negative) Urine Leukocyte Esterase Negative /uL (Negative) Urine RBC 8 /hpf (0 - 3) Urine Microscopic WBC 2 /HPF (0-3) Urine Squamous Epithelial Cells Few /hpf (<5) Urine Bacteria None seen /hpf (None Seen) Urine Mucus Few (None Seen) Urine Glucose Normal mg/dL (Normal) Urine Opiates Screen Pos (NEGATIVE) Urine Fentanyl Screen Neg (NEGATIVE) Urine Barbiturates Screen Neg (NEGATIVE) Urine Phencyclidine Screen Neg (NEGATIVE) Urine Amphetamines Screen Neg (NEGATIVE) Urine Benzodiazepines Screen Neg (NEGATIVE) Urine Cocaine Screen Neg (NEGATIVE) Urine Cannabinoids Screen Neg (NEGATIVE) Test 05/19/25 04:21 05/18/25 19:26 05/18/25 18:37 Erythrocyte Sedimentation Rate 30 mm/hr (0-20) C-Reactive Protein High Sensitivity 2.38 mg/dL (<1.0) Triglycerides Level 54 mg/dL (< 150) Cholesterol Level 144 mg/dL (< 200) LDL Cholesterol 79 mg/dL (< 100) HDL Cholesterol 56 mg/dL (40-59) Vitamin B12 Level 552 pg/mL (211-911) Vitamin D 25-Hydroxy 32.6 ng/mL (30.0-100) Troponin I High Sensitivity < 3 ng/L (</=54) Prothrombin Time 10.9 sec (9.3-11.8) Prothrombin Time INR 1.03 (0.9-1.15) Activated Partial Thromboplast Time 27.6 SEC (24.5-34.5) Hemoglobin A1c 5.9 % A1C (<5.7) Magnesium Level 2.1 mg/dL (1.6-2.6) Thyroid Stimulating Hormone (TSH) 0.35 uIU/mL (0.55-4.78) Other Laboratory Tests 05/21/25 04:47 Brief Hx & Hospital Course: Dieter Alegre is a 54-year-old male with past medical history of hypertension who presented to the hospital with complains of pain in the gluteal region, chest pain and palpitations since 3 months. Patient said the pain has been chronic but had increased in intensity in the past 1 day Prompting the visit to the ED. Patient said that he came to the ED with the same complaints 1 day prior what was sent home. He had a history of gluteal augmentation surgeries done in 2007. The back pain was 10/10 intensity, localized, aggravated on pressure, no relieving factor, no radiation. Stress test done 6 years ago in [place] which came back negative. Patient was septic when he came in. Chest x- ray reviewed in increased interstitial prominence. CT pelvis with contrast revealed abscess formation and possible leakage from the right gluteal implant. Patient was treated with IV antibiotics, pain killers and supportive treatments. Surgery was consulted. They advised outpatient follow up with Plastic surgery for removal of the implant. During the course of the hospitalization, the patient was stabilized and is being discharged to plastic surgery for outpatient follow up discharge plan follow up with PCP in 7 days Follow up with Plastic surgery in 7 days for implant removal Continue home medications Condition at Discharge: Fair Final Diagnosis/Problems List Sepsis due to below Intractable gluteal pain due to infection/abscess of gluteal implant leukocytosis left-shifted due to above Chest pain likely costochondritis Essential hypertension Obesity, BMI 32.6 Discharge Disposition: Home Discharge Instruct/Medications Diet: Cardiac 2g Na,low cholest Activity: No Restrictions, As Tolerated Follow Up/Referral: follow up with PCP in 7 days Follow up with Plastic surgery in 7 days for implant removal Continue home medications Medications: as per EHR Scheduled Azithromycin (Azithromycin), 1 TAB PO DAILY Lisinopril (Lisinopril), 40 MG PO DAILY, (Reported) Scheduled PRN Cyclobenzaprine HCl (Cyclobenzaprine Hydrochlo), 1 TAB PO Q8HPRN PRN Cyclobenzaprine Hcl (Cyclobenzaprine Hcl), 1 TAB PO TID PRN Ibuprofen Micronized (Ibuprofen), 800 MG PO TID PRN Discharge Statement: "Patient was advised to return to the ER or call 911 if any headaches, dizziness, shortness of breath, chest pain, abdominal pain, bleeding, fevers, or worsening of medical condition. Patient was counseled about treatment plan, medications, possible side effects, patientverbalized understanding. All questions were answered to the best of my ability. This discharge took greater then 30 minutes in planning, reviewing documentation, counseling the patient, and discussing with other team members." ASSESSMENT ASSESSMENT Assessment Infected gluteal implant sepsis due to above Date of Service: May 21, 2025 Billing Provider: AMAN ORANTES MD Common Visit Codes: [id number] DISCH DAY >30min WOODY PERDOMO RESIDENT May 21, 2025 17:01
== END 2025-05-21 18:20 | disposition home or self-care (01) | DRG 721 ==
LOC: EDBD 18:16 → EDSEX 18:16 → ER 18:16 → OVERFLOW 21:43 → WEST WING 05-19 17:41
PROVIDERS: ADMIT Student in an Organized Health Care Education/Training Program; ATTEND Student in an Organized Health Care Education/Training Program
DX: T85.79XA Infection and inflammatory reaction due to other internal prosthetic devices, implants and grafts, initial encounter (principal); A41.9 Sepsis, unspecified organism; L02.31 Cutaneous abscess of buttock; E66.9 Obesity, unspecified; I10 Essential (primary) hypertension; M94.0 Chondrocostal junction syndrome [Tietze]; M54.50 Low back pain, unspecified; G89.29 Other chronic pain; M54.16 Radiculopathy, lumbar region; Z68.32 Body mass index [BMI] 32.0-32.9, adult; Z79.1 Long term (current) use of non-steroidal anti-inflammatories (NSAID); Z82.49 Family history of ischemic heart disease and other diseases of the circulatory system; Z80.0 Family history of malignant neoplasm of digestive organs; Z79.899 Other long term (current) drug therapy
CPT/HCPCS: 36415; 71045; 72100; 72220; 74177; 80048; 80053; 80061; 80307; 81001; 82306; 82607; 83036; 83605; 83735; 84443; 84484; 85025; 85610; 85652; 85730; 86141; 87040; 93005; 93306; 96372; G0378; J1885